=== PATIENT | female | born 1930 | race Caucasian/White ===

== ENCOUNTER 2017-06-17 06:43 | Emergency (ER) | payer MEDICARE, BC ==
[~2017-06-17] VITALS: Ht 149.9 cm; Wt 57.0 kg
[~2017-06-17 06:43] MED LIST: FOLI1 PO; HYDR2.5T PO
[2017-06-17 06:50] VITALS: BP 178/80; PULSE 78; RESP 18; TEMP 98.7; O2SAT 95
[2017-06-17] MEDS ORDERED: METO50TA PO (06:59)
[2017-06-17] MEDS ORDERED: OMEP40CA2 PO (06:59)
[2017-06-17] MEDS ORDERED: LOSA100T PO (06:59)
[2017-06-17] MEDS ORDERED: AMLO5TAB2 PO (06:59)
[2017-06-17] MEDS ORDERED: FOLI400T PO (06:59)
[2017-06-17] MEDS ORDERED: SODIUM CHLORIDE 0.9% FLUSH 10 ML FLUSH IV FLUSH PRN (07:45)
[2017-06-17] MEDS ORDERED: SODIUM CHLOR 0.9% 1000 ML INJ 1,000 ML IV SCH (07:45)
[2017-06-17] MEDS ORDERED: ONDANSETRON HCL 4 MG/2 ML VIAL IVP ONE (07:45)
--- NOTE | 2017-06-17 07:57 | PD ---
HPI Chief Complaint: Abdominal Pain Time Seen by Provider: 07:34 Travel History International Travel<30 days: No Contact w/Intl Traveler<30days: No Traveled to known affect area: No History of Present Illness HPI The patient was seen and examined in the presence of the nurse. She complains of abdominal pain and diarrhea. Duration is 8 hours. Severity is moderate. She has abdominal pain and bilateral lower quadrants. No fever or vomiting but has nausea. She reports multiple episodes of diarrhea through the night. Denies ill contacts. Denies history of diagnosed colon problems. She had a spell of abdominal pain a week ago that resolved after 2 days. No alleviating factors. No exacerbating factors. PFSH Past Medical History Diminished Hearing: Yes (VERY MUCH) GERD: Yes Hypertension: Yes Tetanus Vaccination: < 5 Years Influenza Vaccination: No Menopausal: Yes Past Surgical History Joint Replacement: Yes (BILAT HIPS) Social History Alcohol Use: Yes Tobacco Use: No Substance Use: No Allergies-Medications (Allergen,Severity, Reaction): Coded Allergies: Sulfa (Sulfonamide Antibiotics) (Unverified Allergy, Severe, 06/17/17) penicillin G (Unverified Allergy, Severe, 06/17/17) Reported Meds & Prescriptions Reported Meds & Active Scripts Active Zofran (Ondansetron HCl) 4 Mg Tab 4 Mg PO Q6HR PRN Flagyl (Metronidazole) 500 Mg Tab 500 Mg PO QID 7 Days Cipro (Ciprofloxacin HCl) 500 Mg Tab 500 Mg PO BID Tramadol (Tramadol HCl) 50 Mg Tab 50 Mg PO Q6H PRN Reported Omeprazole 40 Mg Cap 40 Mg PO DAILY Folic Acid 0.4 Mg Tab 400 Mcg PO DAILY Metoprolol Tartrate 50 Mg Tab 50 Mg PO DAILY Losartan (Losartan Potassium) 100 Mg Tab 100 Mg PO DAILY Amlodipine (Amlodipine Besylate) 5 Mg Tab 5 Mg PO DAILY Review of Systems General / Constitutional: No: Fever Eyes: No: Visual changes HENT: No: Headaches Cardiovascular: No: Chest Pain or Discomfort Respiratory: No: Shortness of Breath Gastrointestinal: Positive: Nausea, Diarrhea, Abdominal Pain Genitourinary: No: Dysuria Musculoskeletal: No: Pain Skin: No Rash Neurologic: No: Weakness Psychiatric: No: Depression Endocrine: No: Polydipsia Hematologic/Lymphatic: No: Easy Bruising Physical Exam Narrative GENERAL: Well-nourished, well-developed patient with abdominal pain and diarrhea SKIN: Focused skin assessment reveals no rash and nodules. Skin is Warm and dry. HEAD: Atraumatic. Normocephalic. EYES: Pupils equal and round. No scleral icterus. No injection or drainage. ENT: No nasal bleeding or discharge. Mucous membranes pink and dry . NECK: Trachea midline. No JVD. CARDIOVASCULAR: Regular rate and rhythm. No murmur appreciated. RESPIRATORY: No accessory muscle use. Clear to auscultation. Breath sounds equal bilaterally. GASTROINTESTINAL: Abdomen soft, bilateral lower quadrant tenderness without rebound or guarding, nondistended. Hepatic and splenic margins not palpable. MUSCULOSKELETAL: No obvious deformities. No clubbing. No cyanosis. No edema. NEUROLOGICAL: Awake and alert. No obvious cranial nerve deficits. Motor grossly within normal limits. Normal speech. PSYCHIATRIC: Appropriate mood and affect; insight and judgment normal. Data Data Last Documented VS Vital Signs Date Time Temp Pulse Resp B/P (MAP) Pulse Ox O2 Delivery O2 Flow Rate FiO2 06/17/17 09:00 81 17 150/74 (99) 97 Room Air 06/17/17 06:50 98.7 Orders Orders Complete Blood Count With Diff (06/17/17 07:45) Comprehensive Metabolic Panel (06/17/17 07:45) Ct Abd/Pel W Iv Contrast(Rout) (06/17/17 07:45) Iv Access Insert/Monitor (06/17/17 07:45) Ecg Monitoring (06/17/17 07:45) Oximetry (06/17/17 07:45) NPO (06/17/17 07:45) Ondansetron Inj (Zofran Inj) (06/17/17 07:45) Sodium Chlor 0.9% 1000 Ml Inj (Ns 1000 M (06/17/17 07:45) Sodium Chloride 0.9% Flush (Ns Flush) (06/17/17 07:45) Electrocardiogram (06/17/17 07:09) Iohexol 350 Inj (Omnipaque 350 Inj) (06/17/17 09:16) Labs Laboratory Tests Test 06/17/17 08:00 White Blood Count 10.3 TH/MM3 Red Blood Count 4.09 MIL/MM3 Hemoglobin 14.8 GM/DL Hematocrit 41.8 % Mean Corpuscular Volume 102.4 FL Mean Corpuscular Hemoglobin 36.1 PG Mean Corpuscular Hemoglobin Concent 35.3 % Red Cell Distribution Width 12.1 % Platelet Count 178 TH/MM3 Mean Platelet Volume 9.6 FL Neutrophils (%) (Auto) 83.0 % Lymphocytes (%) (Auto) 8.0 % Monocytes (%) (Auto) 7.3 % Eosinophils (%) (Auto) 1.2 % Basophils (%) (Auto) 0.5 % Neutrophils # (Auto) 8.5 TH/MM3 Lymphocytes # (Auto) 0.8 TH/MM3 Monocytes # (Auto) 0.7 TH/MM3 Eosinophils # (Auto) 0.1 TH/MM3 Basophils # (Auto) 0.0 TH/MM3 CBC Comment DIFF FINAL Differential Comment Blood Urea Nitrogen 10 MG/DL Creatinine 0.67 MG/DL Random Glucose 212 MG/DL Total Protein 7.6 GM/DL Albumin 3.8 GM/DL Calcium Level 9.4 MG/DL Alkaline Phosphatase 74 U/L Aspartate Amino Transf (AST/SGOT) 18 U/L Alanine Aminotransferase (ALT/SGPT) 18 U/L Total Bilirubin 0.4 MG/DL Sodium Level 136 MEQ/L Potassium Level 3.3 MEQ/L Chloride Level 102 MEQ/L Carbon Dioxide Level 24.9 MEQ/L Anion Gap 9 MEQ/L Estimat Glomerular Filtration Rate 83 ML/MIN [facility] Medical Decision Making Medical Screen Exam Complete: Yes Emergency Medical Condition: Yes Medical Record Reviewed: Yes Differential Diagnosis Colitis, dehydration, gastroenteritis Narrative Course I have reviewed the patient's electronic medical record. I have ordered an abdominal pain workup to include labs and CT scanning I gave her IV Zofran and 1 L normal saline IV She looks dehydrated clinically and is thirsty On recheck the patient is improved She is resting comfortably without significant pain CT scan shows mild colitis without obstruction or abscess or perforation Lab studies reasonably normal Patient feels well enough to go home I wrote her Flagyl and Cipro as well as some of her pain and nausea if needed Advised to contact her physician when she gets home to set up follow-up as well as discuss GI follow-up Diagnosis Primary Impression: Colitis, acute Additional Impression: Dehydration, mild Additional Instructions: Follow-up with primary care and GI Med/Other Pt SpecificInfo: Prescription(s) given Scripts Ondansetron (Zofran) 4 Mg Tab 4 MG PO Q6HR Y for NAUSEA OR VOMITING, #15 TAB 0 Refills Prov: Gaetano Cast MD 06/17/17 Metronidazole (Flagyl) 500 Mg Tab 500 MG PO QID for Infection for 7 Days, TAB 0 Refills Prov: Gaetano Cast MD 06/17/17 Ciprofloxacin (Cipro) 500 Mg Tab 500 MG PO BID for Infection, #14 TAB 0 Refills Prov: Gaetano Cast MD 06/17/17 Tramadol (Tramadol) 50 Mg Tab 50 MG PO Q6H Y for PAIN, #20 TAB 0 Refills Prov: Gaetano Cast MD 06/17/17 Disposition: 01 DISCHARGE HOME Condition: Stable Gaetano Cast MD Jun 17, 2017 07:57
[2017-06-17 07:58] VITALS: RESP 16; O2SAT 97
[2017-06-17 08:15] LABS: AUTOMATED NEUTROPHIL # 8.5 TH/MM3 (1.8-7.7); BASOPHIL % 0.5 % (0.0-2.0); EOSINOPHIL # 0.1 TH/MM3 (0-0.4); EOSINOPHIL % 1.2 % (0.0-4.0); HEMATOCRIT 41.8 % (35.0-46.0); HEMOGLOBIN 14.8 GM/DL (11.6-15.3); LYMPHOCYTE # 0.8 TH/MM3 (1.0-4.8); MEAN CELL VOLUME 102.4 FL (80.0-100.0); MEAN CORPUSCULAR HEMOGLOBIN 36.1 PG (27.0-34.0); MEAN CORPUSCULAR HGB CONC 35.3 % (32.0-36.0); MEAN PLATELET VOLUME 9.6 FL (7.0-11.0); MONO % 7.3 % (0.0-8.0); MONOCYTE # 0.7 TH/MM3 (0-0.9); PLATELET COUNT 178 TH/MM3 (150-450); RED BLOOD COUNT 4.09 MIL/MM3 (4.00-5.30); RED CELL DISTRIBUTION WIDTH 12.1 % (11.6-17.2); WHITE BLOOD COUNT 10.3 TH/MM3 (4.0-11.0)
[2017-06-17 08:28] LABS: ALT (GPT) 18 U/L (10-53)
[2017-06-17 08:31] LABS: ALKALINE PHOSPHATASE 74 U/L (45-117); TOTAL BILIRUBIN ADULT 0.4 MG/DL (0.2-1.0); TOTAL PROTEIN 7.6 GM/DL (6.4-8.2)
[2017-06-17 08:36] LABS: ALBUMIN 3.8 GM/DL (3.4-5.0); AST (GOT) 18 U/L (15-37); BICARBONATE 24.9 MEQ/L (21.0-32.0); BLOOD UREA NITROGEN 10 MG/DL (7-18); CALCIUM 9.4 MG/DL (8.5-10.1); CHLORIDE 102 MEQ/L (98-107); CREATININE 0.67 MG/DL (0.50-1.00); GLOMERULAR FILTRATION RATE 83 ML/MIN (>89); GLUCOSE,RANDOM 212 MG/DL (74-106); SODIUM (NA) 136 MEQ/L (136-145)
[2017-06-17 09:00] VITALS: BP 150/74; PULSE 81; RESP 17; O2SAT 97
[2017-06-17] MEDS ORDERED: IOHEXOL 350 MG/ML 10 ML VIAL (for RAD DIAG) IVCONTRAST ONE (09:16)
--- NOTE | 2017-06-17 09:30 | RADRPT ---
EXAM DATE/TIME: 06/17/2017 09:12 [place] COMPARISON: No previous studies available for comparison. INDICATIONS : Lower abdominal pain IV CONTRAST: 85 cc Omnipaque 350 (iohexol) IV ORAL CONTRAST: No oral contrast ingested. RADIATION DOSE: 8.82 CTDIvol (mGy) MEDICAL HISTORY : Hypertension. SURGICAL HISTORY : Bilateral hip replacements ENCOUNTER: Initial ACUITY: 1 day PAIN SCALE: 5/10 LOCATION: Bilateral lower quadrant TECHNIQUE: Volumetric scanning of the abdomen and pelvis was performed. Using automated exposure control and ad justment of the mA and/or kV according to patient size, radiation dose was kept as low as reasonably achievable to obtain optimal diagnostic quality images. DICOM format image data is available electro nically for review and comparison. FINDINGS: Lung bases are clear. Moderate hiatal hernia. No acute findings in the liver, spleen, adrenals, kidne ys or pancreas. There is a 2.9 cm infrarenal abdominal aortic aneurysm. There is colonic diverticulosis with a mild diverticulitis in the left lower quadrant. No abscess, ob struction, free fluid or free air. Previous bilateral hip replacement. Chronic appearing compression deformity at T12. CONCLUSION: 1. Mild diverticulitis distal left colon without abscess, obstruction, free fluid or free air. 2. Moderate hiatal hernia. 3. Mild fatty liver. 4. Bilateral hip replacement. 5. 2.9 cm infrarenal abdominal aortic aneurysm. Francesco Katz MD on June 17, 2017 at 9:24 Board Certified Radiologist. This report was verified electronically.
[2017-06-17] MEDS ORDERED: METR-1 PO (11:45)
[2017-06-17] MEDS ORDERED: ZOFR4TAB PO (11:45)
[2017-06-17] MEDS ORDERED: CIPR-9 PO (11:45)
[2017-06-17] MEDS ORDERED: TRAM50TA PO (11:45)
--- NOTE | 2017-06-18 18:12 | EKG ---
Date Performed: 06/17/2017 Time Performed: 07:09:19 PTAGE: 86 years EKG: Sinus rhythm WITH FIRST DEGREE AV BLOCK NONSPECIFIC T-WAVE ABNORMALITY ABNORMAL ECG NO PREVIOUS TRACING DOCTOR: Cayetano Chery Interpretating Date/Time 06/18/2017 18:11:29
== END 2017-06-17 13:04 | disposition home or self-care (01) ==
LOC: NEPC 06:43
DX: K52.9 Noninfective gastroenteritis and colitis, unspecified (principal); E86.0 Dehydration; K21.9 Gastro-esophageal reflux disease without esophagitis; I10 Essential (primary) hypertension
CPT/HCPCS: 74177; 80053; 85025; 93005; 96374; 99285; J2405; J7030; Q9967

== ENCOUNTER 2017-11-30 09:15 | Observation (INO) ==
--- NOTE | 2017-11-30 09:42 | ED ---
HPI General Chief complaint: Weakness Stated complaint: Cardiac complaint Time Seen by Provider: 11/30/17 09:34 Source: patient, EMS, RN notes reviewed and old records reviewed Mode of arrival: EMS Limitations: other (hard of hearing) History of Present Illness HPI Narrative: 87-year-old female states that she has been feeling generally weak over the past couple months. She has been keeping track of her heart rate and blood pressure as she feels like her heart rate has been low. She states when she went to her primary doctor farach he stopped her metoprolol yesterday and wanted to monitor her over the next couple of days. She states now her blood pressure is higher but her heart rate is still low and so she was sent here for further care. She denies any pain or other concurrent complaints. MD Complaint: generalized weakness Onset (ago): month(s) Duration: constant Location: generalized Associated symptoms: denies other symptoms Related Data Allergies Allergy/AdvReac Type Severity Reaction Status Date / Time penicillin G Allergy Severe Unverified 06/17/17 06:53 Sulfa (Sulfonamide Allergy Severe Unverified 06/17/17 06:53 Antibiotics) Review of Systems ROS: all other systems reviewed are negative [facility] Medical History Medical History Diverticulitis (Acute) HTN (hypertension) (Acute) Surgical History Surgical History History of ankle surgery (Acute) History of hip surgery (Acute) Social History Social History Substance History: No History of Abuse Second Hand Smoke Exposure: No Smoking Status: Never smoker How Often Do You Have a Drink Containing Alcohol: Monthly or less Recent Travel in [facility] within the Last 8 Weeks: No Recent Out of Country Travel within the Last 8 Weeks: No Exam Narrative Exam Narrative: GENERAL: 87-year-old female in no apparent distress SKIN: Focused skin assessment warm/dry. HEAD: Atraumatic. Normocephalic. EYES: Pupils equal and round. No scleral icterus. No injection or drainage. ENT: No nasal bleeding or discharge. Mucous membranes pink and moist. NECK: Trachea midline. CARDIOVASCULAR: Bradycardic rate and regular rhythm. No murmur appreciated. RESPIRATORY: No accessory muscle use. Clear to auscultation. Breath sounds equal bilaterally. MUSCULOSKELETAL: No obvious deformities. No clubbing. No cyanosis. NEUROLOGICAL: Awake and alert. Motor grossly within normal limits. Normal speech. PSYCHIATRIC: Appropriate mood and affect; insight and judgment normal. Course Reevaluation(s) Reevaluation #1: patient updated and agrees to admit Consultations Consultation #1: resident team agrees to admit Initial Documented Vital Signs Temperature 97.5 F L 11/30/17 09:21 Pulse Rate 38 L 11/30/17 09:21 Respiratory Rate 20 11/30/17 09:21 Blood Pressure 200/86 H 11/30/17 09:21 Pulse Oximetry 98 11/30/17 09:21 Last Documented Vital Signs Temperature 97.5 F L 11/30/17 09:21 Pulse Rate 38 L 11/30/17 09:21 Respiratory Rate 20 11/30/17 09:21 Blood Pressure 200/86 H 11/30/17 09:21 Pulse Oximetry 97 11/30/17 09:38 Medical Decision Making MDM Narrative Medical decision making narrative: Will check blood work, x-ray and reevaluate Medical Screen Exam Complete: Yes Emergency Medical Condition: Yes Differential Diagnosis Differential Diagnosis: Electrolyte abnormality, medication effect, cardiac Lab Data Result diagrams: 11/30/17 09:42 11/30/17 09:42 Lab Results 11/30/17 11/30/17 11/30/17 Range/Units 09:42 09:42 09:42 WBC 4.7 (4.0-11.0) th/mm3 RBC 4.35 (4.00-5.30) mil/mm3 Hgb 15.2 (11.6-15.3) gm/dL Hct 44.2 (35.0-46.0) % MCV 101.6 H (80.0-100.0) fL MCH 35.0 H (27.0-34.0) pg MCHC 34.4 (32.0-36.0) % RDW 12.9 (11.6-17.2) % Plt Count 162 (150-450) th/mm3 MPV 9.4 (7.0-11.0) fL Neut % (Auto) 66.3 (16.0-70.0) % Lymph % (Auto) 20.0 (9.0-44.0) % [place] % (Auto) 10.3 H (0.0-8.0) % Eos % (Auto) 2.5 (0.0-4.0) % Baso % (Auto) 0.9 (0.0-2.0) % Neut # (Auto) 3.1 (1.8-7.7) th/mm3 Lymph # (Auto) 0.9 L (1.0-4.8) th/mm3 [place] # (Auto) 0.5 (0.0-0.9) th/mm3 Eos # (Auto) 0.1 (0.0-0.4) th/mm3 Baso # (Auto) 0.0 (0.0-0.2) th/mm3 WBC Differential . Differential Comment Auto diff final PT 11.0 (9.8-11.6) sec INR 1.1 Ratio APTT 26.0 (24.3-30.1) sec Sodium 139 (136-145) meq/L Potassium 4.2 (3.5-5.1) meq/L Chloride 103 (98-107) meq/L Carbon Dioxide 27.4 (21.0-32.0) meq/L Anion Gap 9 (5-15) meq/L BUN 10 (7-18) mg/dL Creatinine 0.69 (0.50-1.00) mg/dL Estimated GFR 80 L (>89) mL/min Random Glucose 180 H (74-106) mg/dL Calcium 8.6 (8.5-10.1) mg/dL Magnesium 2.0 (1.5-2.5) mg/dL Total Bilirubin 0.5 (0.2-1.0) mg/dL AST 15 (15-37) U/L ALT 19 (10-53) U/L Alkaline Phosphatase 72 (45-117) U/L Total Creatine Kinase 35 (26-192) U/L Troponin I Less than 0.02 L (0.02-0.05) ng/mL Total Protein 7.7 (6.4-8.2) g/dL Albumin 3.6 (3.4-5.0) g/dL Imaging Data Radiologist's impression: Chest X-Ray 11/30/17 09:38 CONCLUSION: Negative examination. Discharge Plan Physicians Team ED Provider: Natalie Wadsworth Primary Care Provider: Dalton Yeh Status ED Status: Admitted Observation Patient
[2017-11-30 09:56] LABS: Baso % (Auto) 0.9 % (0.0-2.0); Eos # (Auto) 0.1 th/mm3 (0.0-0.4); Eos % (Auto) 2.5 % (0.0-4.0); Hematocrit 44.2 % (35.0-46.0); Hemoglobin 15.2 gm/dL (11.6-15.3); Lymph # (Auto) 0.9 th/mm3 (1.0-4.8); Mean Corpuscular HGB Conc 34.4 % (32.0-36.0); Mean Corpuscular Volume 101.6 fL (80.0-100.0); Mean Platelet Volume 9.4 fL (7.0-11.0); Mono # (Auto) 0.5 th/mm3 (0.0-0.9); Mono % (Auto) 10.3 % (0.0-8.0); Neut # (Auto) 3.1 th/mm3 (1.8-7.7); Neut % (Auto) 66.3 % (16.0-70.0); Platelet Count 162 th/mm3 (150-450); Red Blood Count 4.35 mil/mm3 (4.00-5.30); Red Cell Distribution Width 12.9 % (11.6-17.2); White Blood Count 4.7 th/mm3 (4.0-11.0)
[2017-11-30 10:09] LABS: INR 1.1 Ratio
--- NOTE | 2017-11-30 10:09 | XR ---
EXAM DATE: 11/30/2017 10:05 AM EDT AGE/SEX: 87 years / Female INDICATIONS: Chest pain. Patient states her blood pressure was high and she had a low pulse rate. CLINICAL DATA: This is the patient's initial encounter. Patient reports that signs and symptoms have been present for 1 day and indicates a pain score of 0/10. MEDICAL/SURGICAL HISTORY: Hypertension. . Hip replacement. COMPARISON: [facility] – [place], CHEST SINGLE AP, 07/24/2012. . FINDINGS: A single AP view of the chest demonstrates the lungs to be symmetrically aerated without evidence of mass, infiltrate or effusion. The cardiomediastinal contours are unremarkable. Osseous structures a re intact. CONCLUSION: Negative examination. Electronically signed by: Renan Perez MD 11/30/2017 10:08 AM EDT
[2017-11-30 10:14] LABS: Alanine Aminotransferase 19 U/L (10-53); Albumin 3.6 g/dL (3.4-5.0); Anion Gap 9 meq/L (5-15); Aspartate Aminotransferase 15 U/L (15-37); Blood Urea Nitrogen 10 mg/dL (7-18); Calcium 8.6 mg/dL (8.5-10.1); Carbon Dioxide 27.4 meq/L (21.0-32.0); Chloride 103 meq/L (98-107); Glomerular Filtration Rate 80 mL/min (>89); Glucose,Random 180 mg/dL (74-106); Potassium 4.2 meq/L (3.5-5.1); Sodium 139 meq/L (136-145)
[2017-11-30 10:19] LABS: Alkaline Phosphatase 72 U/L (45-117); Total Protein 7.7 g/dL (6.4-8.2)
[2017-11-30 10:22] LABS: Creatine Kinase 35 U/L (26-192)
[2017-11-30] MEDS ORDERED: Acetaminophen 325 MG Tablet PO PRN (11:56)
--- NOTE | 2017-11-30 12:06 | P.HPFP ---
History of Present Illness Primary Care Physician: Dalton Yeh MD <[facility] 12/01/17 15:11> Dalton Yeh MD <David Kothari 11/30/17 12:06> Chief Complaint: Weakness <David Kothari 11/30/17 14:08> History of Present Illness: 87-year-old female with a history of hypertension, GERD, recurrent GI bleeds, diverticulitis presenting to the ED with progressive weakness. Patient states that 2 weeks ago she had a colonoscopy due to recurrent melena and she states that during the procedure she had "low pulse". She states that since that time she has been progressively more weak, foggy and drowsy. She checks her vitals at home and has noticed fluctuating blood pressure accompanied by heart rates in the 40s and 30s. She states that she saw her primary doctor 2 days prior to presentation and he discontinued her metoprolol. Despite this she continued to be progressively more weak and drowsy and this prompted her to come to the emergency room. He denies any chest pain, shortness of breath, headaches or blurry vision, abdominal pain, melena or bloody bowel movements currently. Of note, patient notes that she has a history of hemochromatosis which " resolved itself several years ago" Denies any family history of heart disease <David Kothari 11/30/17 14:55> - Diagnosis (1) Bradycardia (2) Weakness (3) Hypertension (4) Recurrent gastrointestinal hemorrhage (5) GERD (gastroesophageal reflux disease) (6) Anxiety (7) Nutrition, metabolism, and development symptoms <Rita Hair Stacey 12/01/17 15:11> (1) Bradycardia (2) Weakness (3) Hypertension (4) Recurrent gastrointestinal hemorrhage (5) GERD (gastroesophageal reflux disease) (6) Anxiety (7) Nutrition, metabolism, and development symptoms <David Kothari 11/30/17 14:39> Review of Systems Constitutional: Denies chills, Denies fever(s) <David Kothari 11/30/17 14 :55> Eyes: Denies blurry vision, Denies double vision <David Kothari 11/30/17 14:55> Ears, Nose, Mouth, and Throat: Denies dizziness, Denies post nasal drip, Denies sore throat <David Kothari 11/30/17 14:55> Cardiovascular: Denies chest pain, Denies chest pain at rest, Denies chest pain with activity <David Kothari 11/30/17 14:55> Respiratory: Reports cough, Denies wheezing <David Kothari 11/30/17 14:55 > Gastrointestinal: Denies abdominal pain, Denies black, tarry stools, Denies bloating <David Kothari 11/30/17 14:55> Genitourinary: Denies blood in urine, Denies urinary urgency <David Kothari 11/30/17 14:55> Skin/Breast: Denies boil, Denies sores <David Kothari 11/30/17 14:55> PMF - History History Provided By: Patient, [employer] Painter / EMT <David Kothari 11/30/17 12: 06> - Medical History Medical History: Medical History (Last Reviewed 11/30/17 @ 14:44 by David Kothari MD, R2) Diverticulitis GERD (gastroesophageal reflux disease) HTN (hypertension) <Rita Hair 12/01/17 15:11> Medical History (Last Reviewed 11/30/17 @ 14:44 by David Kothari MD, R2) Diverticulitis GERD (gastroesophageal reflux disease) HTN (hypertension) <David Kothari 11/30/17 14:55> - Surgical History Surgical History: Surgical History (Last Reviewed 11/30/17 @ 14:44 by David Kothari MD, R2) History of ankle surgery History of hip surgery <Rita Hair 12/01/17 15:11> Surgical History (Last Reviewed 11/30/17 @ 14:44 by David Kothari MD, R2) History of ankle surgery History of hip surgery <David Kothari 11/30/17 14:55> - Tobacco History Second Hand Smoke Exposure: No <David Kothari 11/30/17 12:06> Tobacco Use In Past 30 Days: No <David Kothari 11/30/17 12:06> Smoking Status: Never smoker <David Kothari 11/30/17 12:06> - Alcohol History How Often Do You Have a Drink Containing Alcohol: Monthly or less <David Kothari 11/30/17 12:06> - Substance Use History Substance History: No History of Abuse <David Kothari Elda - 11/30/17 12:06> - Travel History Recent Travel in the [place] Within the Last 8 Weeks: No <David Kothari Elda - 11/30 12:06> Recent Travel Out of the Country Within the Last 8 Weeks: No <David Kothari Elda - 11/30/17 12:06> - Immunization History Tetanus Immunization: Never Vaccinated <David Kothari Elda - 11/30/17 12:06> Hx Influenza Vaccine This Season: No <David Kothari Elda - 11/30/17 12:06> Medications and Allergies Allergies Allergy/AdvReac Type Severity Reaction Status Date / Time penicillin G Allergy Severe Rash Verified 11/30/17 13:39 Sulfa (Sulfonamide Allergy Severe Rash Verified 11/30/17 13:39 Antibiotics) <Rita Hair - 12/01/17 15:11> Home Medications Medication Instructions Recorded Confirmed Type alprazolam 0.25 mg PO DAILY 11/30/17 11/30/17 History amlodipine 5 mg PO DAILY 11/30/17 11/30/17 History folic acid 1 mg PO DAILY 11/30/17 11/30/17 History losartan 100 mg PO DAILY 11/30/17 11/30/17 History metoprolol tartrate 50 mg PO DAILY 11/30/17 11/30/17 History omeprazole 40 mg PO DAILY 11/30/17 11/30/17 History <Rita Hair - 12/01/17 15:11> Active Medications: Active Medications Acetaminophen (Tylenol) 650 mg PO Q4H PRN PRN Reason: Temp > 100.4 Al Hydroxide/Mg Hydroxide (Milk Of Magnesia Liq) 30 ml PO Q12H PRN PRN Reason: Mild Constipation Alprazolam (Xanax) 0.25 mg PO DAILY [facility] Last Admin: 12/01/17 10:04 Dose: Not Given Amlodipine Besylate (Norvasc) 5 mg PO DAILY [facility] Last Admin: 12/01/17 08:00 Dose: Not Given Chlorhexidine Gluconate (Chlorhexidine 2% Cloth) 3 pack TOPICAL JEWELSMITH [facility] Stop: 12/03/17 13:27 Chlorhexidine Gluconate (Chlorhexidine 2% Cloth) 3 pack TOPICAL JEWELSMITH [facility] Stop: 12/04/17 05:36 Enalaprilat (Vasotec Inj) 1.25 mg IV.PUSH Q6H PRN PRN Reason: SEE LABEL COMMENTS Folic Acid (Folic Acid) 1 mg PO DAILY [facility] Last Admin: 12/01/17 08:00 Dose: Not Given Vancomycin HCl 1,000 mg/ (Sodium Chloride) 250 mls @ 250 mls/hr IV.SIG JEWELSMITH [facility] Stop: 12/03/17 14:59 Last Infusion: 12/01/17 09:30 Dose: Infused Lactated Ringer's (Lr 1000 Ml Inj) 1,000 mls @ 30 mls/hr IV.SIG .Q24H [facility] Stop: 12/04/17 05:36 Last Admin: 12/01/17 07:22 Dose: Not Given Sodium Chloride (Ns Inj) 500 mls @ 30 mls/hr IV.SIG .Q10H [facility] Stop: 12/04/17 05:36 Last Infusion: 12/01/17 13:19 Dose: Infused Losartan Potassium (Cozaar) 100 mg PO DAILY [facility] Last Admin: 12/01/17 08:00 Dose: Not Given Metoprolol Tartrate (Lopressor) 25 mg PO [facility]EW[facility]SMITH [facility] Stop: 12/04/17 05:36 Miscellaneous Information ([facility] Nursing Information) 1 each OTHER UNSCH PRN PRN Reason: SEE LABEL COMMENTS Stop: 12/02/17 09:28 Mupirocin (Bactroban 2% Nasal Oint) 1 applicatio EACH NARE JEWELSMITH [facility] Stop: 12/03/17 13:27 Ondansetron HCl (Zofran Inj) 4 mg IV.PUSH Q6H PRN PRN Reason: NAUSEA OR VOMITING Pantoprazole Sodium (Protonix) 40 mg PO DAILY [facility] Last Admin: 12/01/17 08:00 Dose: Not Given Povidone Iodine (Betadine 5% Antisepsis Kit) 1 applicatio EACH NARE J[facility]SMITH [facility] Stop: 12/03/17 13:27 Povidone Iodine (Betadine 5% Antisepsis Kit) 1 applicatio EACH NARE J[facility]SMITH [facility] Stop: 12/04/17 05:36 Senna/Docusate Sodium (Josiane-Colace) 1 tab PO BID [facility] Last Admin: 12/01/17 08:00 Dose: Not Given Sodium Chloride (Ns Flush) 2 ml IV.FLUSH UNSCH PRN PRN Reason: FLUSH AFTER USING IV ACCESS <Rita Hair M - 12/01/17 15:11> Active Medications Acetaminophen (Tylenol) 650 mg PO Q4H PRN PRN Reason: Temp > 100.4 Al Hydroxide/Mg Hydroxide (Milk Of Magnesia Liq) 30 ml PO Q12H PRN PRN Reason: Mild Constipation Ondansetron HCl (Zofran Inj) 4 mg IV.PUSH Q6H PRN PRN Reason: NAUSEA OR VOMITING Senna/Docusate Sodium (Josiane-Colace) 1 tab PO BID ANIKA Sodium Chloride (Ns Flush) 2 ml IV.FLUSH UNSCH PRN PRN Reason: FLUSH AFTER USING IV ACCESS <David Kothari - 11/30/17 12:06> Exam Vital signs: Vital Signs 11/30/17 16:00 11/30/17 20:00 12/01/17 00:00 Temperature 97.5 F L 98 F 97.9 F Pulse Rate 42 L 42 L 38 L Respiratory Rate 20 18 18 Blood Pressure 143/66 H 159/70 H 147/68 H Pulse Oximetry 93 L 94 L 94 L 12/01/17 04:00 12/01/17 09:28 12/01/17 09:30 Temperature 97.4 F L 97.7 F Pulse Rate 44 L 89 89 Respiratory Rate 18 19 19 Blood Pressure 164/60 H 127/71 138/79 Pulse Oximetry 95 97 97 12/01/17 09:45 12/01/17 10:00 12/01/17 10:15 Temperature 97.7 F Pulse Rate 83 79 79 Respiratory Rate 20 20 17 Blood Pressure 135/75 143/70 H 142/72 H Pulse Oximetry 98 98 96 12/01/17 11:00 12/01/17 12:00 12/01/17 12:15 Temperature 97.4 F L Pulse Rate 85 98 H 54 L Respiratory Rate 16 Blood Pressure 138/78 136/75 Pulse Oximetry 98 98 12/01/17 13:00 12/01/17 14:00 12/01/17 14:19 Temperature Pulse Rate 97 H 95 H 101 H Respiratory Rate 16 Blood Pressure 110/80 Pulse Oximetry 96 12/01/17 14:25 12/01/17 14:44 Temperature Pulse Rate 92 H Respiratory Rate Blood Pressure Pulse Oximetry 92 L Intake & Output 11/30/17 12/01/17 12/01/17 18:59 06:59 18:59 Intake Total 240 / 240 1250 / 1250 Balance 240 / 240 1250 / 1250 Weight 58.513 kg 58.513 kg Intake: IV 1250 / 1250 NS Inj 1,000 ML @ 80 mls/hr IV. 500 / 500 CONT .[id number] ANIKA Rx#:[id number] NS Inj 500 ML @ 30 mls/hr IV. 500 / 500 SIG .Q10H ANIKA Rx#:[id number] Vancomycin Inj 1,000 MG In NS 250 / 250 Inj 250 ML @ 250 mls/hr IV.SIG JEWELSMITH ANIKA Rx#:[id number] Oral 240 / 240 Other: # Voids 2 Date of Last Bowel Movement 12/01/17 # Bowel Movements 1 1 <Rita Hair - 12/01/17 15:11> Vital Signs 11/30/17 09:21 11/30/17 09:38 11/30/17 11:58 Temperature 97.5 F L Pulse Rate 38 L Respiratory Rate 20 Blood Pressure 200/86 H Pulse Oximetry 98 97 96 Intake & Output 11/29/17 11/30/17 11/30/17 18:59 06:59 18:59 Weight 58.513 kg <David Kothari - 11/30/17 12:06> Narrative: GENERAL: Elderly well-nourished female lying in bed in no acute distress. Answering questions appropriately. SKIN: Warm and dry. HEAD: Atraumatic. Normocephalic. EYES: Pupils equal and round. No scleral icterus. No injection or drainage. Conjunctivae are not pale ENT: No nasal bleeding or discharge. Mucous membranes pink and moist. NECK: Trachea midline. No JVD. CARDIOVASCULAR: Heart rate in the 40s, regular rhythm. Capillary refill appropriate. RESPIRATORY: No accessory muscle use. Clear to auscultation. Breath sounds equal bilaterally. GASTROINTESTINAL: Abdomen soft, non-tender, nondistended. Hepatic and splenic margins not palpable. MUSCULOSKELETAL: Extremities without clubbing, cyanosis, or edema. No obvious deformities. NEUROLOGICAL: Awake and alert. No obvious cranial nerve deficits. Motor grossly within normal limits. Five out of 5 muscle strength in the arms and legs. Normal speech. PSYCHIATRIC: Appropriate mood and affect; insight and judgment normal. <David Kothari - 11/30/17 14:55> Results - Labs Result diagrams: 12/01/17 02:50 12/01/17 02:50 <Rita Hair - 12/01/17 15:11> Abnormal lab results 11/30/17 11/30/17 11/30/17 Range/Units 13:45 15:10 21:19 MCV (80.0-100.0) fL MCH (27.0-34.0) pg Cal[place]oun % (Auto) (0.0-8.0) % Random Glucose (74-106) mg/dL Troponin I Less than 0.02 L Less than 0.02 L (0.02-0.05) ng/mL Ur Leukocyte Esterase Small H (Negative) 12/01/17 12/01/17 Range/Units 02:50 02:50 MCV 100.4 H (80.0-100.0) fL MCH 35.6 H (27.0-34.0) pg Calhoun % (Auto) 11.6 H (0.0-8.0) % Random Glucose 128 H (74-106) mg/dL Troponin I (0.02-0.05) ng/mL Ur Leukocyte Esterase (Negative) Short CBC 12/01/17 Range/Units 02:50 WBC 5.6 (4.0-11.0) th/mm3 Hgb 14.8 (11.6-15.3) gm/dL Hct 41.7 (35.0-46.0) % Plt Count 166 (150-450) th/mm3 BMP 12/01/17 02:50 Sodium 140 Potassium 3.9 Chloride 105 Carbon Dioxide 24.8 BUN 10 Creatinine 0.62 Calcium 8.6 Cardiac Enzymes 11/30/17 11/30/17 Range/Units 15:10 21:19 Troponin I Less than 0.02 L Less than 0.02 L (0.02-0.05) ng/mL Urine 11/30/17 Range/Units 13:45 Urine Color Straw (Yellw/Straw) Urine Clarity Clear (Clear) Urine pH 7.0 (5.0-8.5) Ur Specific [place] 1.005 (1.002-1.035) Urine Protein Negative (Neg-Trace) mg/dL Urine Glucose (UA) Negative (Negative) mg/dL <Rita Hair - 12/01/17 15:11> Abnormal lab results 11/30/17 11/30/17 Range/Units 09:42 09:42 MCV 101.6 H (80.0-100.0) fL MCH 35.0 H (27.0-34.0) pg Calhoun % (Auto) 10.3 H (0.0-8.0) % Lymph # (Auto) 0.9 L (1.0-4.8) th/mm3 Estimated GFR 80 L (>89) mL/min Random Glucose 180 H (74-106) mg/dL Troponin I Less than 0.02 L (0.02-0.05) ng/mL Short CBC 11/30/17 Range/Units 09:42 WBC 4.7 (4.0-11.0) th/mm3 Hgb 15.2 (11.6-15.3) gm/dL Hct 44.2 (35.0-46.0) % Plt Count 162 (150-450) th/mm3 BMP 11/30/17 09:42 Sodium 139 Potassium 4.2 Chloride 103 Carbon Dioxide 27.4 BUN 10 Creatinine 0.69 Calcium 8.6 Cardiac Enzymes 11/30/17 Range/Units 09:42 Total Creatine Kinase 35 (26-192) U/L Troponin I Less than 0.02 L (0.02-0.05) ng/mL Liver Function 11/30/17 Range/Units 09:42 Total Bilirubin 0.5 (0.2-1.0) mg/dL AST 15 (15-37) U/L ALT 19 (10-53) U/L Alkaline Phosphatase 72 (45-117) U/L Albumin 3.6 (3.4-5.0) g/dL <David Kothari - 11/30/17 12:06> - Imaging Impressions Chest X-Ray 12/01/17 00:00 CONCLUSION: Cardiomegaly. No acute pulmonary disease. <Rita Hair - 12/01/17 15:11> Impressions Chest X-Ray 11/30/17 09:38 CONCLUSION: Negative examination. <David Kothari - 11/30/17 12:06> Caprini VTE Risk Assessment Caprini VTE Risk Assessment: Moderate/High Risk (score >= 2) <David Kothari - 11/30/17 14:55> Caprini Risk Assessment Model: Point Value = 1 Point Value = 2 Point Value = 3 Point Value = 5 Age 41-60 Minor surgery BMI > 25 kg/m2 Swollen legs Varicose veins or History of unexplained or recurrent spontaneous Oral contraceptives or hormone replacement Sepsis (< 1 month) Serious lung disease, including pneumonia (< 1 month) Abnormal pulmonary function Acute myocardial infarction Congestive heart failure (< 1 month) History of inflammatory bowel disease Medical patient at bed rest Age 61-74 Arthroscopic surgery Major open surgery (> 45 min) Laparoscopic surgery (> 45 min) Malignancy Confined to bed (> 72 hours) Immobilizing plaster cast Central venous access Age >= 75 History of VTE Family history of VTE Factor V Leiden Prothrombin [id number] Lupus anticoagulant Anticardiolipin antibodies Elevated serum homocysteine Heparin-induced thrombocytopenia Other congenital or acquired thrombophilia Stroke (< 1 month) Elective arthroplasty Hip, pelvis, or leg fracture Acute spinal cord injury (< 1 month) <Rita Hair - 12/01/17 15:11> Point Value = 1 Point Value = 2 Point Value = 3 Point Value = 5 Age 41-60 Minor surgery BMI > 25 kg/m2 Swollen legs Varicose veins or History of unexplained or recurrent spontaneous Oral contraceptives or hormone replacement Sepsis (< 1 month) Serious lung disease, including pneumonia (< 1 month) Abnormal pulmonary function Acute myocardial infarction Congestive heart failure (< 1 month) History of inflammatory bowel disease Medical patient at bed rest Age 61-74 Arthroscopic surgery Major open surgery (> 45 min) Laparoscopic surgery (> 45 min) Malignancy Confined to bed (> 72 hours) Immobilizing plaster cast Central venous access Age >= 75 History of VTE Family history of VTE Factor V Leiden Prothrombin [id number] Lupus anticoagulant Anticardiolipin antibodies Elevated serum homocysteine Heparin-induced thrombocytopenia Other congenital or acquired thrombophilia Stroke (< 1 month) Elective arthroplasty Hip, pelvis, or leg fracture Acute spinal cord injury (< 1 month) <David Kothari - 11/30/17 12:06> Prophylaxis Regimen: Total Risk Factor Score Risk Level Prophylaxis Regimen 0-1 Low Early ambulation 2 Moderate Order ONE of the following: *Sequential Compression Device (SCD) *Heparin 5000 units SQ BID 3-4 Higher Order ONE of the following medications: *Heparin 5000 units SQ TID *Enoxaparin/Lovenox 40 mg SQ daily (WT < 150 kg, CrCl > 30 mL/min) *Enoxaparin/Lovenox 30 mg SQ daily (WT < 150 kg, CrCl > 10-29 mL/min) *Enoxaparin/Lovenox 30 mg SQ BID (WT < 150 kg, CrCl > 30 mL/min) AND/OR *Sequential Compression Device (SCD) 5 or more Highest Order ONE of the following medications: *Heparin 5000 units SQ TID (Preferred with Epidurals) *Enoxaparin/Lovenox 40 mg SQ daily (WT < 150 kg, CrCl > 30 mL/min) *Enoxaparin/Lovenox 30 mg SQ daily (WT < 150 kg, CrCl > 10-29 mL/min) *Enoxaparin/Lovenox 30 mg SQ BID (WT < 150 kg, CrCl > 30 mL/min) AND *Sequential Compression Device (SCD) <Rita Hair - 12/01/17 15:11> Total Risk Factor Score Risk Level Prophylaxis Regimen 0-1 Low Early ambulation 2 Moderate Order ONE of the following: *Sequential Compression Device (SCD) *Heparin 5000 units SQ BID 3-4 Higher Order ONE of the following medications: *Heparin 5000 units SQ TID *Enoxaparin/Lovenox 40 mg SQ daily (WT < 150 kg, CrCl > 30 mL/min) *Enoxaparin/Lovenox 30 mg SQ daily (WT < 150 kg, CrCl > 10-29 mL/min) *Enoxaparin/Lovenox 30 mg SQ BID (WT < 150 kg, CrCl > 30 mL/min) AND/OR *Sequential Compression Device (SCD) 5 or more Highest Order ONE of the following medications: *Heparin 5000 units SQ TID (Preferred with Epidurals) *Enoxaparin/Lovenox 40 mg SQ daily (WT < 150 kg, CrCl > 30 mL/min) *Enoxaparin/Lovenox 30 mg SQ daily (WT < 150 kg, CrCl > 10-29 mL/min) *Enoxaparin/Lovenox 30 mg SQ BID (WT < 150 kg, CrCl > 30 mL/min) AND *Sequential Compression Device (SCD) <David Kothari - 11/30/17 12:06> Assessment and Plan - Assessment (1) Bradycardia Code(s): R00.1 - Bradycardia, unspecified Status: Acute (2) Weakness Code(s): R53.1 - Weakness Status: Acute (3) Hypertension Code(s): I10 - Essential (primary) hypertension Status: Acute (4) Recurrent gastrointestinal hemorrhage Code(s): K92.2 - Gastrointestinal hemorrhage, unspecified Status: Acute (5) GERD (gastroesophageal reflux disease) Code(s): K21.9 - Gastro-esophageal reflux disease without esophagitis Status: Acute (6) Anxiety Code(s): F41.9 - Anxiety disorder, unspecified Status: Acute (7) Nutrition, metabolism, and development symptoms Code(s): R63.8 - Other symptoms and signs concerning food and fluid intake Status: Acute <Rita Hair - 12/01/17 15:11> (1) Bradycardia Code(s): R00.1 - Bradycardia, unspecified Status: Acute Plan: Reported history of heart rate in the 30s and 40s over the last 2 weeks EKG on admission showed bradycardia with 2-1 AV block Troponin negative on admission Patient been on metoprolol tartrate 50 mg p.o. daily, last taken 2 days prior to presentation Placed on telemetry Consulting cardiology Will trend EKGs, troponins Holding home metoprolol (2) Weakness Code(s): R53.1 - Weakness Status: Acute Plan: 2 week history of progressive weakness Differential diagnoses including symptomatic bradycardia, anemia secondary to GI bleed, electrolyte abnormalities H&H is stable and within normal limits, no electrolyte abnormalities noted Suspect her symptoms be secondary to bradycardia See workup as above (3) Hypertension Code(s): I10 - Essential (primary) hypertension Status: Acute Plan: Known history of hypertension previously treated with amlodipine, metoprolol and losartan Holding metoprolol, continuing amlodipine and losartan Low pressure 200/88 on admission, continues to be elevated in the 170s over 80s Adding IV Vasotec as needed for systolic blood pressure over 180, diastolic over 100 (4) Recurrent gastrointestinal hemorrhage Code(s): K92.2 - Gastrointestinal hemorrhage, unspecified Status: Acute Plan: Patient reporting history of recurrent melanoma over the years Reporting a colonoscopy 2 weeks prior to presentation due to this Denying any current symptoms of melena or bloody bowel movements H&H stable Will hold pharmacologic DVT prophylaxis due to this (5) GERD (gastroesophageal reflux disease) Code(s): K21.9 - Gastro-esophageal reflux disease without esophagitis Status: Acute Plan: Known history of GERD Continue home omeprazole (6) Anxiety Code(s): F41.9 - Anxiety disorder, unspecified Status: Acute Plan: Known history of anxiety Continue home alprazolam (7) Nutrition, metabolism, and development symptoms Code(s): R63.8 - Other symptoms and signs concerning food and fluid intake Status: Acute Plan: Regular diet. N.p.o. at midnight Normal saline IV fluids at 80 mL/h SCDs for DVT prophylaxis <David Kothari - 11/30/17 14:39> - Assessment and Plan 87-year-old female with history of hypertension, GERD, recurrent GI bleeds, diverticulitis and anxiety presented to the ED with weakness. Found to be bradycardic with a 2-1 AV block with a heart rate in the 30s-40s. Cardiology consulted for possible pacemaker placement. Seen and discussed with Dr. Hair <David Kothari - 11/30/17 14:55> - Attending Attestation The exam, history, and the medical decision-making described in the above note were completed with the assistance of the resident physician. I reviewed and agree with the findings presented. I attest that I had a [id number] encounter with the patient on the same day, and personally performed and documented my assessment and findings in the medical record. I saw her on admission to the hospital and admitted her with the resident team. <Rita Hair - 12/01/17 15:11>
[2017-11-30] MEDS ORDERED: Mupirocin 2% Nasal Oint Topical Syringe EACH NARE SCH (13:30)
[2017-11-30] MEDS ORDERED: Chlorhexidine Gluconate 2% 1 Pack (2 Cloths) TOPICAL SCH (13:30)
--- NOTE | 2017-11-30 14:20 | MB ---
cc: Nabil Cleary MD DATE: 11/30/2017 REASON FOR CONSULTATION: Evaluation of slow heart rate. HISTORY OF PRESENT ILLNESS: Nan Olivia is an 87-year-old female who is a patient of Dr. Crenshaw. She has a history of hypertension and has been on metoprolol for this. She has been having erratic blood pressures and a slow heart rate. Dr. Yeh instructed her to discontinue metoprolol. She thinks she took her last dose on Tuesday, which would be 2 days ago. She has been feeling weak for the last couple of months. She was told when she had an endoscopy 2-3 weeks ago that her heart rate was slow. She is in 2:1 AV block and I am suspicious whether anybody has noticed that is a 2:1 block instead of just a sinus bradycardia. She has been in 2:1 block since she has been in here, with pulse rates into the 30s. She is very fatigued and tired. She has not actually passed out, but has not felt right for quite some time. She is right-handed. She has not had any chest pain or shortness of breath, but is extremely tired. PAST MEDICAL HISTORY: Includes hypertension. She has had bilateral hip replacements, left ankle surgery. She has had diverticular disease, hemochromatosis and porphyria. She is followed by Dr. Macdonald and has not required any phlebotomy for the past 2 years. SOCIAL HISTORY: She says the man that she lives with has dementia. She is a nonsmoker, nondrinker. She has 2 living children, one local and one out of state. The one living local is on her way to the hospital, apparently. ALLERGIES: INCLUDE PENICILLIN AND SULFA. REVIEW OF SYSTEMS: Otherwise negative. PHYSICAL EXAMINATION: GENERAL: Reveals a well-developed, well-nourished white female. She is a little hard of hearing. She responds little slow to questions, but otherwise appears appropriate. VITAL SIGNS: Charted. She is hypertensive and bradycardic. HEENT: Atraumatic, normocephalic. NECK: Negative for bruits. CHEST: Clear to auscultation. CARDIOVASCULAR: Shows normal S1, S2, bradycardic, 1/6 systolic murmur. No S3. ABDOMEN: Soft, nontender. No masses. EXTREMITIES: No clubbing, cyanosis, or edema. DIAGNOSTIC DATA: EKG shows sinus rhythm with 2:1 AV block. LABORATORY DATA: Show a hematocrit of 44.2, creatinine of 0.69. Troponin less than 0.2. Her chest x-ray is unremarkable. IMPRESSION: Symptomatic 2:1 heart block. PLAN: Appropriate consent has been obtained for a dual-chamber pacemaker, which I plan to put in tomorrow. The patient is aware of the risk of stroke, heart attack, , bleeding, infection, and is agreeable to proceed. Nabil Cleary MD VEW/kb , 01:25 PM , 01:33 PM
[2017-11-30] MEDS ORDERED: Vancomycin Inj 1,000 MG in Sodium Chlor 0.9% Inj 250 ML IV.SIG SCH (15:00)
[2017-11-30] MEDS: Sod Chloride 0.9% Inj 1,000 ML IV.CONT SCH (15:02)
[2017-11-30 15:56] LABS: Bilirubin,Urine Negative (Negative); Clarity,Urine Clear (Clear); Color,Urine Straw (Yellw/Straw); Glucose,Urine (UA) Negative (Negative); Leukocyte Esterase,Urine Small (Negative); Nitrite,Urine Negative (Negative); Specific Gravity,Urine 1.005 (1.002-1.035); Squamous Epithelial Cell,Urine <1 /hpf (0-5)
--- NOTE | 2017-11-30 21:09 | ECG ---
Date Performed: 11/30/2017 Time Performed: 09:25:04 PTAGE: 87 years EKG: SINUS BRADYCARDIA WITH 2ND DEGREE AV BLOCK, MOBITZ TYPE II ABNORMAL ECG PREVIOUS TRACING : 06/17/2017 07.09 Compared to previous tracing, Type II second degree AV blo ck is new DOCTOR: Eyad Torrez Interpretating Date/Time 11/30/2017 21:08:46
[2017-12-01] MEDS: Senna/Docusate Sodium 8.6/50 MG Tablet PO SCH ×3 (00:13→21:08)
[2017-12-01 05:23] LABS: Baso # (Auto) 0.1 th/mm3 (0.0-0.2); Baso % (Auto) 0.9 % (0.0-2.0); Eos # (Auto) 0.2 th/mm3 (0.0-0.4); Eos % (Auto) 3.8 % (0.0-4.0); Hematocrit 41.7 % (35.0-46.0); Hemoglobin 14.8 gm/dL (11.6-15.3); Lymph # (Auto) 1.4 th/mm3 (1.0-4.8); Lymph % (Auto) 25.9 % (9.0-44.0); Mean Corpuscular HGB Conc 35.5 % (32.0-36.0); Mean Corpuscular Hemoglobin 35.6 pg (27.0-34.0); Mean Corpuscular Volume 100.4 fL (80.0-100.0); Mean Platelet Volume 9.9 fL (7.0-11.0); Mono # (Auto) 0.6 th/mm3 (0.0-0.9); Mono % (Auto) 11.6 % (0.0-8.0); Neut # (Auto) 3.2 th/mm3 (1.8-7.7); Neut % (Auto) 57.8 % (16.0-70.0); Platelet Count 166 th/mm3 (150-450); Red Blood Count 4.15 mil/mm3 (4.00-5.30); Red Cell Distribution Width 12.7 % (11.6-17.2); White Blood Count 5.6 th/mm3 (4.0-11.0)
[2017-12-01] MEDS ORDERED: Chlorhexidine Gluconate 2% 1 Pack (2 Cloths) TOPICAL SCH (05:45)
[2017-12-01] MEDS ORDERED: Metoprolol Tartrate 25 MG Tablet PO SCH (05:45)
[2017-12-01 05:51] LABS: Anion Gap 10 meq/L (5-15); Blood Urea Nitrogen 10 mg/dL (7-18); Calcium 8.6 mg/dL (8.5-10.1); Carbon Dioxide 24.8 meq/L (21.0-32.0); Chloride 105 meq/L (98-107); Glomerular Filtration Rate Greater Than 89 mL/min (>89); Glucose,Random 128 mg/dL (74-106); Potassium 3.9 meq/L (3.5-5.1); Sodium 140 meq/L (136-145)
[2017-12-01] MEDS ORDERED: Sodium Chlor 0.9% Inj 500 ML IV.SIG SCH (06:00)
[2017-12-01] MEDS: Sod Chloride 0.9% Inj 1,000 ML IV.CONT SCH (06:38)
[2017-12-01] MEDS ORDERED: fentaNYL Citrate Inj 100 MCG/2 ML Ampul ONE (07:16)
[2017-12-01] MEDS ORDERED: Sodium Chlor 0.9% Inj 250 ML ONE (07:19)
[2017-12-01] MEDS: Folic Acid 1 MG Tablet PO SCH (08:00)
[2017-12-01] MEDS: amLODIPine 5 MG Tablet PO SCH (08:00)
[2017-12-01] MEDS ORDERED: Famotidine PF Inj 20 MG/2 ML Vial ONE (08:05)
[2017-12-01] MEDS ORDERED: Hydrocortisone Sod Succinate 100 MG Vial ONE (08:05)
--- NOTE | 2017-12-01 09:14 | CATHPROC ---
YCharts HIS Report Study Information Study Number Admission Scheduled Start Study Start [id number] 11/30/2017 12/01/2017 Dec 01 2017 6:59AM Referring Institution Admit Source Facility Department 1 Other [facility] Fire Captain Marine Physician and Clinical Staff Initial Nabil Alonzo Firmware Test Engineer Kala Valle RCIS Other Anesthesia, FLOOR SUPERVISOR Recorder Niki Velásquez,RN Scrub Avi, Arcelia,EGG PROCESSING SUPERVISOR TECH2 Procedures Performed Procedure Location (Site) Vessel Name Lead Insertion Venogram Subclav. Vein (Lft Subclavian Vein Equipment Time New Car Salesperson Description Size Mfg Part Number Used/Scraped INTRODUCER SET, [id number] 07:57 [employer] FR 5 Used MICROPUNCTURE *[id number] INTRODUCER SET, [id number] 07:57 [employer] FR 5 Used MICROPUNCTURE *[id number] 07:56 [employer] BLANKET,WARM AIR CCL * Used *[id number] TP-1103 07:56 [employer] SUTURE, STRIP PLUS 1/2" * Used *[id number] 07:56 MEDLINE PACER ADHESIVE, MASTISOL 2/3CC 2/3CC 0523-48 Used 07:56 MEDLINE PACER LEE, LIMB * 2530 *[id number] Used [id number] 07:56 MEDLINE PACER PACK, PACER CUSTOM * Used *[id number] 07:56 MEDLINE PACER PEN, SKIN DUAL W/ RULER * Used *[id number] 08:18 [employer] MEDICAL PACER SAFE SHEATH, FR7, 13CM FR 7 CLS-1007 Used 08:19 [employer] MEDICAL PACER SAFE SHEATH, FR7, 13CM FR 7 CLS-1007 Used 07:45 Needle Sponge Count 2 22 Used 07:45 Needle Sponge Count 25 1 Used 07:45 Needle Sponge Count 5 5 Used 08:09 [employer] OMNIPAQUE, 300 MG, 50ML 50ML [id number] Used [id number] *[id number] SUTURE, 2-0 VICRYL [SH] (FUP978H) SUTURE, 3-0 VICRYL [SH] (EXK261D) SUTURE, 4-0 MONOCRYL [PS2] (Y496G) [facility] PAD, ELECTROSURGICAL 07:56 * [id number] *[id number] Used SURGICAL GROUNDING ORANGE LEAD, CAPSURE FIX NOVUS, 4076-45CM 08:35 [employer] 45CM Used 45CM *[id number] LEAD, CAPSURE FIX NOVUS, 4076-52CM 08:28 [employer] 52CM Used 52CM *[id number] 07:57 [employer] MONITOR, PACEMAKER\\ICD 60588 *[id number] Used 08:46 [employer] PACEMAKER, LIZA XT DR FITZGERALD-DDDR [id number] Used 0469-2844 07:56 [employer] SHALONDA. / * Used *51388 Equipment Model, Serial, Lot Number and Expiration Data Description Model Number Serial Number Lot Number Expiration Date LEAD, CAPSURE FIX NOVUS, 45CM 4076 [id number] 06-16-2019 LEAD, CAPSURE FIX NOVUS, 52CM 4076 [id number] 11-15-2017 PACEMAKER, LIZA XT [id number] 04-17-2019 History: Allergies Allergy Reaction Sulfa (Sulfonamide Antibiotics) Rash penicillin G Rash History: Risk Factors Hypertension Yes Labs Hgb (g/dl) Hct (%) RBC (MIL/MM3) WBC (l/cumm) Platelets (thousands) 11.60-17.00 35.00-51.00 4.00-5.90 4.00-11.00 150.00-450.00 14.0 41 4.1 5.6 166 Glucose (mg/dl) BUN (mg/dl) Creatinine (mg/dl) BUN:Creatinine (1:x) 74.00-106.00 7.00-18.00 0.50-1.30 10.00-20.00 128 10 0.6 16.7 Na (meq/l) K (meq/l) 136.00-145.00 3.50-5.10 140 3.9 INR (PTT:PT) 0.90-1.10 1.1 Medication Medication Total Dose (Bolus/Oral) Medication Total Dosage/Unit 2% XYLOCAINE 50 mL BENADRYL 25 mg PEPCID 20 mg SOLU-CORTEF 100 mg Medications (Bolus/Oral) Medication Time Given Dosage/Unit Administered By Reason 2% XYLOCAINE 12/01/2017 8:06:40 AM 50 mL Anesthesia, FLOOR SUPERVISOR 50 mL 2% XYLOCAINE given in lab by Anesthesia, FLOOR SUPERVISOR via Subcutaneous. Ordered by Nabil Cleary. BENADRYL 12/01/2017 8:07:48 AM 25 mg Anesthesia, FLOOR SUPERVISOR As per physicians verba l order 25 mg BENADRYL given in lab by Anesthesia, FLOOR SUPERVISOR via Peripheral IV. Ordered by Nabil Cleary. Reason: As per physicians verbal order. SOLU-CORTEF 12/01/2017 8:08:07 AM 100 mg Anesthesia, FLOOR SUPERVISOR As per physicians oj bal order 100 mg SOLU-CORTEF given in lab by Anesthesia, FLOOR SUPERVISOR via Peripheral IV. Ordered by Nabil Cleary. Reas on: As per physicians verbal order. PEPCID 12/01/2017 8:08:17 AM 20 mg Anesthesia, FLOOR SUPERVISOR As per physicians verbal order 20 mg PEPCID given in lab by Anesthesia, FLOOR SUPERVISOR. Ordered by Nabil Cleary. Reason: As per physicians ve rbal order. Medication (Drip) Medication Time Given Dosage/Unit Concentration/Unit Diluent (ml) Solution VANCOMYCIN DRIP 12/01/2017 7:30:55 AM 1 g 1 g VANCOMYCIN DRIP given in lab by Anesthesia, FLOOR SUPERVISOR via Peripheral IV. Ordered by Nabil Cleary. Ama son: As per physicians verbal order. Initial Case Assessment Cardiovascular HR Rhythm NIBP Chest Pain 40 2hb 168/65 0 Edema Present Skin color Skin None Normal Warm Dry Circulatory - Right Pulses Dorsalis Pedis Radial 1 1 Scale (0,1,2,3,4,d) Circulatory - Left Pulses Dorsalis Pedis Radial 1 1 Scale (0,1,2,3,4,d) Circulatory - Lower Extremities Color Lower Right Color Lower Left Normal Normal Neurological State Oriented to time-place- Alert Moves all extremities person Respiration - General Respiration Rate SpO2 (%) O2 (lpm) (B/min) 18 95 50 Final Case Assessment Cardiovascular HR Rhythm NIBP Chest Pain 96 homebound teacher 173/98 0 Edema Present Skin color Skin None Normal Warm Dry Circulatory - Right Pulses Radial 1 Scale (0,1,2,3,4,d) Circulatory - Left Pulses Radial 1 Scale (0,1,2,3,4,d) Circulatory - Lower Extremities Color Lower Right Color Lower Left Normal Normal Neurological State Oriented to time-place- Drowsy Moves all extremities person Respiration - General Respiration Rate SpO2 (%) O2 (lpm) (B/min) 16 100 4 Chronological Log Time Study Chronological Log 7:14:51 Patient arrived via Bed. 7:14:52 Patient Name, D.O.B, / Armband Verified By R.N. 7:14:52 Consent signed by the physician and the patient and verified by the Fire Captain Marine staff. 7:14:53 Pre-op and post- op instructions given; patient acknowledges understanding of instructions. 7:14:53 Verbal Stimulation=2 Physical Stimulation=2 Airway=2 Respiration=2 TOTAL=8. (0=absent, 1=li mited, 2=present) 7:14:54 Anesthesia at bedside. Assumes care of patient. 7:14:56 Patient has been NPO for More than 6Hrs. 7:14:56 Skin Breakdown- none per pt 7:14:57 Patient Warmer Placed on the Table. 7:14:58 Disposable Defibrillator Pads Placed On Patient. 7:14:59 Nydia Prominences Protected 7:15:01 A # 20 IV was noted in the Antecubital (left). Grade = 0 0.9ns kvo 7:15:02 A # 20 IV was noted in the Antecubital (right). Grade = 0 0.9ns kvo 7:15:03 History and physical on the chart or being dictated. 1 g VANCOMYCIN DRIP given in lab by Anesthesia, FLOOR SUPERVISOR via Peripheral IV. Ordered by Nabil Cleary . Reason: As per 7:30:55 physicians verbal order. 7:42:46 Reference ECG taken Assessment: Initial Case, HR=40 BPM, Rhythm=2hb, UGRT=277/65 mmhg, Chest Pain=0, Edema=None, Color=Normal, Skin = Warm, Dry Right Pulses: Shalom Ped=1, Radial=1 Left Pulses: Shalom Ped=1, Radial=1 7:42:58 Lower Right Extremities: Color=Normal Lower Left Extremities: Color=Normal Neurological: State=Alert, Ox3, CHAMORRO Respiration: Resp=18 B/min, SpO2=95 %, O2=50 lpm 7:43:55 Table restraints applied according to hospital policy 7:44:00 2% CHLORHEXIDINE GLUCONATE WASH AND NASAL SWIPE DONE PRIOR TO PROCEDURE. First Sponge And Instrument Count Done by Arcelia Cárdenas, EGG PROCESSING SUPERVISOR TECH2. 7:44:23 Hypo's: 5, Sponges: 25, Bovie/scratch: 2 Sutures: 4, Blades: 2, Instruments: 26, Syveck Patches: ~SYVECK PATCH~ 7:48:34 Bovie ground pad applied to: Abd 7:48:56 Upper Chest Prepped Times Two. 8:02:06 MD arrived. Time Out. Correct patient, procedure, procedure equipment, site and side verified with physician present. Time 8:05:03 concurred by MD, individual staff and FLOOR SUPERVISOR. Time Out #2 - Consents verified, patient in correct position, all results are labled and display ed, safety precautions 8:05:31 taken, antibiotics administered. Time out concurred by MD, individual staff and FLOOR SUPERVISOR in procedur e 8:05:54 Case Start 8:06:40 50 mL 2% XYLOCAINE given in lab by Anesthesia, FLOOR SUPERVISOR via Subcutaneous. Ordered by Josh Cleary 25 mg BENADRYL given in lab by Anesthesia, FLOOR SUPERVISOR via Peripheral IV. Ordered by Nabil Cleary. [place] son: As per 8:07:48 physicians verbal order. 100 mg SOLU-CORTEF given in lab by Anesthesia, FLOOR SUPERVISOR via Peripheral IV. Ordered by Nabil Cleary. Reason: As per 8:08:07 physicians verbal order. 8:08:17 20 mg PEPCID given in lab by Anesthesia, FLOOR SUPERVISOR. Ordered by Nabil Cleary. Reason: As per phys icians verbal order. 8:08:47 The Subclav. Vein (Lft was manually injected with 20 cc's of contrast. OMNIPAQUE, 300 MG, 50 ML 50ML used. 8:09:52 Vascular access was obtained in the Subclav. Vein (Lft. 8:17:08 Vascular access was obtained in the Subclav. Vein (Lft. 8:17:11 Wire inserted 8:17:14 Surgical Incision Made. A INTRODUCER SET, MICROPUNCTURE FR 5 was advanced into the Subclav. Vein (Lft using the Modified Seldinger 8:17:33 technique. A SAFE SHEATH, FR7, 13CM FR 7 was exchanged in the Subclav. Vein (Lft. This was necessary in ord er to accomodate 8:17:43 a larger catheter. 8:18:29 Vascular access was obtained in the Subclav. Vein (Lft. 8:18:32 Wire inserted A INTRODUCER SET, MICROPUNCTURE FR 5 was advanced into the Subclav. Vein (Lft using the Modified Seldinger 8:18:35 technique. A SAFE SHEATH, FR7, 13CM FR 7 was exchanged in the Subclav. Vein (Lft. This was necessary in ord er to accomodate 8:18:49 a larger catheter. 8:26:47 A pocket was created at the L Upper Chest. 8:28:59 A LEAD, CAPSURE FIX NOVUS, 52CM 52CM was inserted and positioned in the RV. 8:29:13 Lead placement verified under fluoroscopy 8:30:19 The RV lead impedance and threshold being tested. 8:30:29 The RV lead was sutured to the fascia. 8:32:40 A LEAD, CAPSURE FIX NOVUS, 45CM 45CM was inserted and positioned in the RA. 8:33:42 Lead placement verified under fluoroscopy 8:35:51 The Atrial lead impedance and threshold is being tested. 8:36:16 The Atrial lead was sutured to the fascia. 8:50:16 A PACEMAKER, LIZA XT DR FITZGERALD-DDDR was connected and placed in the pocket. 8:51:23 Pocket flushed with antibiotic solution Second Sponge And Instrument Count Done by Arcelia Cárdenas, EGG PROCESSING SUPERVISOR TECH2. 8:53:57 Hypo's: 5, Sponges: 25, Bovie/scratch: 2 Sutures: 7, Blades: 2, Instruments: , Syveck Patches: ~SYVECK PATCH~ 8:58:18 The pocket was closed. 9:05:29 PACU called. Spoke to Terri 9:05:40 Bedside Report will be given. 9:08:03 Implantable Device card placed in patient's chart. Final Sponge And Instrument Count Done by Arcelia Cárdenas, EGG PROCESSING SUPERVISOR TECH2. 9:08:24 Hypo's: 5, Sponges: 25, Bovie/scratch: 2 Sutures: 7, Blades: 2, Instruments: 26, Syveck Patches: ~SYVECK PATCH~ 9:09:22 Implant Procedure was performed. 9:09:31 A PPM Implant . (Dual) 9:09:50 Steri-strips and a sterile dressing applied to site. 9:11:43 A sling was placed on the affected arm. 9:12:20 Case End (Physician broke scrub) Assessment: Final Case, HR=96 BPM, Rhythm=homebound teacher, QOIA=704/98 mmhg, Chest Pain=0, Edema=None, Mallie r=Normal, Skin = Warm, Dry Right Pulses: Radial=1 Left Pulses: Radial=1 9:12:36 Lower Right Extremities: Color=Normal Lower Left Extremities: Color=Normal Neurological: State=Drowsy, Ox3, CHAMORRO Respiration: Resp=16 B/min, KlG0=954 %, O2=4 lpm 9:13:20 No case complications noted. 9:13:21 Cine recording checked. 9:15:31 Defibrillator and ground pads removed. Skin intact. 9:23:35 Patient moved to stretcher End Study - Contrast Media Used In Study Contrast Total Opened (mL) Total Used (mL) Total Wasted (mL) Omnipaque 50 20 30 End Study - Maximum Contrast Load Max Contrast Load (mL) 487.5 End Study - Radiation Exposure Fluoro Time (minutes) 6.7 End Study - Patient Disposition Complications Transferred To Interventional Outcome No Telemetry Bed successful
--- NOTE | 2017-12-01 09:31 | P.HPGS ---
History of Present Illness Primary Care Physician: Dalton Yeh MD Chief Complaint: Weakness History of Present Illness: 87-year-old female with a history of hypertension, GERD, recurrent GI bleeds, diverticulitis presenting to the ED with progressive weakness. Patient states that 2 weeks ago she had a colonoscopy due to recurrent melena and she states that during the procedure she had "low pulse". She states that since that time she has been progressively more weak, foggy and drowsy. She checks her vitals at home and has noticed fluctuating blood pressure accompanied by heart rates in the 40s and 30s. She states that she saw her primary doctor 2 days prior to presentation and he discontinued her metoprolol. Despite this she continued to be progressively more weak and drowsy and this prompted her to come to the emergency room. He denies any chest pain, shortness of breath, headaches or blurry vision, abdominal pain, melena or bloody bowel movements currently. Of note, patient notes that she has a history of hemochromatosis which " resolved itself several years ago" Denies any family history of heart disease She receives a pacemaker today her pulse is currently in the 80s she was sitting in her room doing well. She had no complaints of pain no cardiac issues at all. We answered her questions. - Diagnosis (1) Bradycardia (2) Weakness (3) Hypertension (4) Recurrent gastrointestinal hemorrhage (5) GERD (gastroesophageal reflux disease) (6) Anxiety (7) Nutrition, metabolism, and development symptoms Review of Systems other (See history and review of systems done yesterday) [facility] [place] - History History Provided By: Patient - Medical History Medical History: Medical History (Last Reviewed 12/01/17 @ 08:15 by Vasiliy Ortiz) Diverticulitis GERD (gastroesophageal reflux disease) HTN (hypertension) - Surgical History Surgical History: Surgical History (Last Reviewed 12/01/17 @ 08:15 by Vasiliy Ortiz) History of ankle surgery History of hip surgery - Tobacco History Second Hand Smoke Exposure: No Tobacco Use In Past 30 Days: No Smoking Status: Never smoker - Alcohol History How Often Do You Have a Drink Containing Alcohol: 2 to 4 times a month - Substance Use History Substance History: No History of Abuse - Travel History Recent Travel in the [place] Within the Last 8 Weeks: No Recent Travel Out of the Country Within the Last 8 Weeks: No - Immunization History Tetanus Immunization: Never Vaccinated Hx Influenza Vaccine This Season: No Medications and Allergies Active Medications: Active Medications Acetaminophen (Tylenol) 650 mg PO Q4H PRN PRN Reason: Temp > 100.4 Al Hydroxide/Mg Hydroxide (Milk Of [place]) 30 ml PO Q12H PRN PRN Reason: Mild Constipation Alprazolam (Xanax) 0.25 mg PO DAILY [facility] Amlodipine Besylate (Norvasc) 5 mg PO DAILY [facility] Last Admin: 12/01/17 08:00 Dose: Not Given Chlorhexidine Gluconate (Chlorhexidine 2% Cloth) 3 pack [employer]FORMATION [employer] PROJECT [employer]GER [facility] Stop: 12/03/17 13:27 Chlorhexidine Gluconate (Chlorhexidine 2% Cloth) 3 pack [employer]FORMATION [employer] PROJECT MANAGER [facility] Stop: 12/04/17 05:36 Enalaprilat (Vasotec Inj) 1.25 mg IV.PUSH Q6H PRN PRN Reason: SEE LABEL COMMENTS Folic Acid (Folic Acid) 1 mg PO DAILY [facility] Last Admin: 12/01/17 08:00 Dose: Not Given Vancomycin HCl 1,000 mg/ (Sodium Chloride) 250 mls @ 250 mls/hr IV.SIG [employer]FORMATION SYSTEMS PROJECT MANAGER [facility] Stop: 12/03/17 14:59 Last Infusion: 12/01/17 09:30 Dose: Infused Lactated Ringer's (Lr 1000 Ml Inj) 1,000 mls @ 30 mls/hr IV.SIG .Q24H [facility] Stop: 12/04/17 05:36 Last Admin: 12/01/17 07:22 Dose: Not Given Sodium Chloride (Ns Inj) 500 mls @ 30 mls/hr IV.SIG .Q10H [facility] Stop: 12/04/17 05:36 Last Admin: 12/01/17 07:15 Dose: 30 mls/hr Losartan Potassium (Cozaar) 100 mg PO DAILY [facility] Last Admin: 12/01/17 08:00 Dose: Not Given Metoprolol Tartrate (Lopressor) 25 mg PO [employer]FORMATION SYSTEMS PROJECT MANAGER [facility] Stop: 12/04/17 05:36 Mupirocin (Bactroban 2% Nasal Oint) 1 applicatio EACH NARE [employer]FORMATION [employer] PROJECT MANAGER [facility] Stop: 12/03/17 13:27 Ondansetron HCl (Zofran Inj) 4 mg IV.PUSH Q6H PRN PRN Reason: NAUSEA OR VOMITING Pantoprazole Sodium (Protonix) 40 mg PO DAILY [facility] Last Admin: 12/01/17 08:00 Dose: Not Given Povidone Iodine (Betadine 5% Antisepsis Kit) 1 applicatio EACH NARE [employer]FORMATION [employer]S PROJECT MANAGER [facility] Stop: 12/03/17 13:27 Povidone Iodine (Betadine 5% Antisepsis Kit) 1 applicatio EACH NARE INFORMATION SYSTEMS PROJECT MANAGER [facility] Stop: 12/04/17 05:36 Senna/Docusate Sodium (Josiane-Colace) 1 tab PO BID [facility] Last Admin: 12/01/17 08:00 Dose: Not Given Sodium Chloride (Ns Flush) 2 ml IV.FLUSH UNSCH PRN PRN Reason: FLUSH AFTER USING IV ACCESS Allergies Allergy/AdvReac Type Severity Reaction Status Date / Time penicillin G Allergy Severe Rash Verified 11/30/17 13:39 Sulfa (Sulfonamide Allergy Severe Rash Verified 11/30/17 13:39 Antibiotics) Home Medications Medication Instructions Recorded Confirmed Type alprazolam 0.25 mg PO DAILY 11/30/17 11/30/17 History amlodipine 5 mg PO DAILY 11/30/17 11/30/17 History folic acid 1 mg PO DAILY 11/30/17 11/30/17 History losartan 100 mg PO DAILY 11/30/17 11/30/17 History metoprolol tartrate 50 mg PO DAILY 11/30/17 11/30/17 History omeprazole 40 mg PO DAILY 11/30/17 11/30/17 History Exam Vital signs: Vital Signs 11/30/17 09:38 11/30/17 10:00 11/30/17 11:00 Temperature Pulse Rate 36 L 38 L Respiratory Rate 19 19 Blood Pressure 164/70 H 178/77 H Pulse Oximetry 97 11/30/17 11:58 11/30/17 12:00 11/30/17 13:30 Temperature Pulse Rate 44 L 37 L Respiratory Rate 19 16 Blood Pressure 169/82 H 151/67 H Pulse Oximetry 96 11/30/17 14:12 11/30/17 16:00 11/30/17 20:00 Temperature 98 F 97.5 F L 98 F Pulse Rate 40 L 42 L 42 L Respiratory Rate 20 20 18 Blood Pressure 170/69 H 143/66 H 159/70 H Pulse Oximetry 96 93 L 94 L 12/01/17 00:00 12/01/17 04:00 Temperature 97.9 F 97.4 F L Pulse Rate 38 L 44 L Respiratory Rate 18 18 Blood Pressure 147/68 H 164/60 H Pulse Oximetry 94 L 95 Intake & Output 11/30/17 12/01/17 12/01/17 18:59 06:59 18:59 Intake Total 240 / 240 250 / 250 Balance 240 / 240 250 / 250 Weight 58.513 kg 58.513 kg Intake: IV 250 / 250 Vancomycin Inj 1,000 MG In NS 250 / 250 Inj 250 ML @ 250 mls/hr IV.SIG [employer]FORMATION [employer] PROJECT MA[employer]GER [facility] Rx#:[id number] Oral 240 / 240 Other: # Voids 2 Date of Last Bowel Movement 12/01/17 # Bowel Movements 1 1 Narrative: GENERAL: Pleasant frail elderly woman in no distress SKIN: Warm and dry. HEAD: Atraumatic. Normocephalic. EYES: Pupils equal and round. No scleral icterus. No injection or drainage. ENT: No nasal bleeding or discharge. Mucous membranes pink and moist. NECK: Trachea midline. No JVD. CARDIOVASCULAR: Regular rate and rhythm. RESPIRATORY: No accessory muscle use. Clear to auscultation. Breath sounds equal bilaterally. GASTROINTESTINAL: Abdomen soft, non-tender, nondistended. MUSCULOSKELETAL: Extremities without clubbing, cyanosis, or edema. No obvious deformities. NEUROLOGICAL: Awake and alert. No obvious cranial nerve deficits. Motor grossly within normal limits. Five out of 5 muscle strength in the arms and legs. Normal speech. PSYCHIATRIC: Appropriate mood and affect; insight and judgment normal. Caprini VTE Risk Assessment Caprini VTE Risk Assessment: Moderate/High Risk (score >= 2) Caprini Risk Assessment Model: Point Value = 1 Point Value = 2 Point Value = 3 Point Value = 5 Age 41-60 Minor surgery BMI > 25 kg/m2 Swollen legs Varicose veins or History of unexplained or recurrent spontaneous Oral contraceptives or hormone replacement Sepsis (< 1 month) Serious lung disease, including pneumonia (< 1 month) Abnormal pulmonary function Acute myocardial infarction Congestive heart failure (< 1 month) History of inflammatory bowel disease Medical patient at bed rest Age 61-74 Arthroscopic surgery Major open surgery (> 45 min) Laparoscopic surgery (> 45 min) Malignancy Confined to bed (> 72 hours) Immobilizing plaster cast Central venous access Age >= 75 History of VTE Family history of VTE Factor V Leiden Prothrombin [id number] Lupus anticoagulant Anticardiolipin antibodies Elevated serum homocysteine Heparin-induced thrombocytopenia Other congenital or acquired thrombophilia Stroke (< 1 month) Elective arthroplasty Hip, pelvis, or leg fracture Acute spinal cord injury (< 1 month) Prophylaxis Regimen: Total Risk Factor Score Risk Level Prophylaxis Regimen 0-1 Low Early ambulation 2 Moderate Order ONE of the following: *Sequential Compression Device (SCD) *Heparin 5000 units SQ BID 3-4 Higher Order ONE of the following medications: *Heparin 5000 units SQ TID *Enoxaparin/Lovenox 40 mg SQ daily (WT < 150 kg, CrCl > 30 mL/min) *Enoxaparin/Lovenox 30 mg SQ daily (WT < 150 kg, CrCl > 10-29 mL/min) *Enoxaparin/Lovenox 30 mg SQ BID (WT < 150 kg, CrCl > 30 mL/min) AND/OR *Sequential Compression Device (SCD) 5 or more Highest Order ONE of the following medications: *Heparin 5000 units SQ TID (Preferred with Epidurals) *Enoxaparin/Lovenox 40 mg SQ daily (WT < 150 kg, CrCl > 30 mL/min) *Enoxaparin/Lovenox 30 mg SQ daily (WT < 150 kg, CrCl > 10-29 mL/min) *Enoxaparin/Lovenox 30 mg SQ BID (WT < 150 kg, CrCl > 30 mL/min) AND *Sequential Compression Device (SCD) Assessment and Plan - Assessment (1) Bradycardia Code(s): R00.1 - Bradycardia, unspecified Status: Acute Plan: (1) Bradycardia Code(s): R00.1 - Bradycardia, unspecified Status: Acute Plan: Reported history of heart rate in the 30s and 40s over the last 2 weeks EKG on admission showed bradycardia with 2-1 AV block Troponin negative on admission Patient been on metoprolol tartrate 50 mg p.o. daily, last taken 2 days prior to presentation Placed on telemetry Consult cardiology Will trend EKGs, troponins Holding home metoprolol Received a pacemaker (2) Weakness Code(s): R53.1 - Weakness Status: Acute Plan: (2) Weakness Code(s): R53.1 - Weakness Status: Acute Plan: 2 week history of progressive weakness Differential diagnoses including symptomatic bradycardia, anemia secondary to GI bleed, electrolyte abnormalities H&H is stable and within normal limits, no electrolyte abnormalities noted Suspect her symptoms be secondary to bradycardia See workup as above (3) Hypertension Code(s): I10 - Essential (primary) hypertension Status: Acute Qualifiers: Hypertension type: essential hypertension Qualified Code(s): I10 - Essential (primary) hypertension Plan: (3) Hypertension Code(s): I10 - Essential (primary) hypertension Status: Acute Plan: Known history of hypertension previously treated with amlodipine, metoprolol and losartan Holding metoprolol, continuing amlodipine and losartan Low pressure 200/88 on admission, continues to be elevated in the 170s over 80s Adding IV Vasotec as needed for systolic blood pressure over 180, diastolic over 100 (4) Recurrent gastrointestinal hemorrhage Code(s): K92.2 - Gastrointestinal hemorrhage, unspecified Status: Acute Plan: (4) Recurrent gastrointestinal hemorrhage Code(s): K92.2 - Gastrointestinal hemorrhage, unspecified Status: Acute Plan: Patient reporting history of recurrent melanoma over the years Reporting a colonoscopy 2 weeks prior to presentation due to this Denying any current symptoms of melena or bloody bowel movements H&H stable Will hold pharmacologic DVT prophylaxis due to this (5) GERD (gastroesophageal reflux disease) Code(s): K21.9 - Gastro-esophageal reflux disease without esophagitis Status: Acute Qualifiers: Esophagitis presence: esophagitis presence not specified Qualified Code(s) : K21.9 - Gastro-esophageal reflux disease without esophagitis Plan: on omeprazole (6) Anxiety Code(s): F41.9 - Anxiety disorder, unspecified Status: Acute Plan: (6) Anxiety Code(s): F41.9 - Anxiety disorder, unspecified Status: Acute Plan: Known history of anxiety Continue home alprazolam (7) Nutrition, metabolism, and development symptoms Code(s): R63.8 - Other symptoms and signs concerning food and fluid intake Status: Acute Plan: (7) Nutrition, metabolism, and development symptoms Code(s): R63.8 - Other symptoms and signs concerning food and fluid intake Status: Acute Plan: Regular diet. N.p.o. at midnight can eat now Normal saline IV fluids at 80 mL/h SCDs for DVT prophylaxis H&P: Quality - VTE Deep Vein Thrombosis/Pulmonary Embolism Present on Admission: No
[2017-12-01] MEDS: ALPRAZolam 0.25 MG Tablet PO SCH (10:04)
--- NOTE | 2017-12-01 10:11 | XR ---
EXAM DATE: 12/01/2017 10:08 AM EDT AGE/SEX: 87 years / Female INDICATIONS: Post pacemaker. Evaluate for pneumothorax. CLINICAL DATA: This is the patient's initial encounter. Patient reports that signs and symptoms have been present for 1 day and indicates a pain score of Nonresponsive. MEDICAL/SURGICAL HISTORY: . Hypertension. . Hip replacement. [place] [facility] [place]. . FINDINGS: The cardiac silhouette is enlarged in transverse diameter. A bipolar pacemaker is in place via a left sided approach. 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 The lungs are free of acute parenchymal opacity. No pulmonary nodules or pleural effusions are identified. CONCLUSION: Cardiomegaly. No acute pulmonary disease. Electronically signed by: Piyush Gabriel MD 12/01/2017 10:10 AM EDT
[2017-12-01] MEDS ORDERED: Lidocaine PF 1% Inj 5 ML Syringe INFILTRATN ONE (11:00)
--- NOTE | 2017-12-01 11:35 | ECG ---
Date Performed: 11/30/2017 Time Performed: 20:27:46 PTAGE: 87 years EKG: Sinus rhythm with third degree AV block Junctional Escape Rhythm POSSIBLE ANTERIOR MYOCARDIAL INFARCTION , PROBAB LY OLD ABNORMAL ECG PREVIOUS TRACING : 11/30/2017 09.25 Compared to previous tracing, third degree AV block has rep laced 2:1 AV block DOCTOR: Nabil Cleary Interpretating Date/Time 12/01/2017 11:34:49
--- NOTE | 2017-12-01 12:25 | MP ---
cc: Nabil Cleary MD DATE OF OPERATION: 12/01/2017 PREOPERATIVE DIAGNOSIS: Symptomatic 2:1 AV block. POSTOPERATIVE DIAGNOSIS: Symptomatic third-degree AV block. PROCEDURE PERFORMED: Insertion of dual-chamber rate-responsive pacemaker. DESCRIPTION OF PROCEDURE: The patient was brought to the cardiac catheterization lab in a fasting state. She received 1 gram of vancomycin for preoperative antibiotics (SHE IS ALLERGIC TO PENICILLIN). I gave her 25 of Benadryl, IV Pepcid, and 100 mg of Solu-Cortef for a CONTRAST ALLERGY. Contrast was injected through an IV in the left arm, showing patency of the subclavian vein. Using 1% lidocaine for local anesthesia, an incision was made parallel to and below the left clavicle. Using sharp and blunt dissections, a pocket was fashioned above the pectoralis muscle. The left subclavian vein was then punctured twice with 2 micropuncture wires. These were exchanged to regular J wires. Over the first J wire, a 7-Djiboutian peel-away sheath was introduced. Through this, the ventricular lead was inserted and screwed near the RV apex, with good sensing and pacing thresholds. It was after this that she was noted to have third-degree AV block, so pacing was continued through the procedure at this point. Over the second guidewire, a 7-[place]iboutian peel-away sheath was introduced and, through this, the atrial lead was inserted and screwed into the right atrial appendage. Appropriate slack was put on both leads and both leads were secured to the underlying fascia using three 2-0 silk sutures with the attached Silastic cuffs. The leads were then attached to the pacemaker generator, which was then positioned in the floor of the pocket. The wound was irrigated with antibiotic solution. The cannula was sutured to the floor of the pocket using a single 2-0 silk suture. The wound was then closed in layers using interrupted 2-0 Vicryl sutures for the deep fascial layers, interrupted 3-0 Vicryl sutures for the subcutaneous layers, followed by running 4-0 Monocryl stitch, and then Steri-Strips and 4 x 4 dressing. Estimated blood loss was 10-20 mL. There were no complications. The pacemaker is a Medtronic model W1DR01, serial number [id number]. The atrial lead is a Medtronic 4076, length 45 cm, serial number [id number]. The P-wave was 2.0 millivolts with threshold of 0.8 volts and impedance of 872 ohms. The ventricular lead is Medtronic 4076, length 52 cm, serial number [id number] with an R-wave of 9 millivolts, threshold of 0.5 volts, and impedance of 1069 ohms. The pacemaker was programmed to DDDR at a rate of 60-130. A chest x-ray has been ordered and anticipate the patient will be discharged home tomorrow. There were no complications. MD FRANSICO Rubio/gerson , 09:13 AM , 09:22 AM
--- NOTE | 2017-12-01 16:33 | ECG ---
Date Performed: 12/01/2017 Time Performed: 09:55:20 PTAGE: 87 years EKG: ELECTRONIC VENTRICULAR PACEMAKER When compared to previous tracing, paced rhythm is new. AB NORMAL RHYTHM ECG PREVIOUS TRACING : 11/30/2017 20.27 DOCTOR: Piyush Joya Interpretating Date/Time 12/01/2017 16:31:44
[2017-12-02 04:38] VITALS: RESP 16
[2017-12-02 07:58] VITALS: BP 154/79; TEMP 97.4
[2017-12-02 08:43] VITALS: O2SAT 95
--- NOTE | 2017-12-02 08:43 | P.PNCA ---
Subjective Interval history: no complaints Physical Exam Vital signs: Vital Signs 12/01/17 09:28 12/01/17 09:30 12/01/17 09:45 Temperature 97.7 F Pulse Rate 89 89 83 Respiratory Rate 19 19 20 Blood Pressure 127/71 138/79 135/75 Pulse Oximetry 97 97 98 12/01/17 10:00 12/01/17 10:15 12/01/17 11:00 Temperature 97.7 F 97.4 F L Pulse Rate 79 79 85 Respiratory Rate 20 17 16 Blood Pressure 143/70 H 142/72 H 138/78 Pulse Oximetry 98 96 98 12/01/17 12:00 12/01/17 12:15 12/01/17 13:00 Temperature Pulse Rate 98 H 54 L 97 H Respiratory Rate Blood Pressure 136/75 Pulse Oximetry 98 12/01/17 14:00 12/01/17 14:19 12/01/17 14:25 Temperature Pulse Rate 95 H 101 H Respiratory Rate 16 Blood Pressure 110/80 Pulse Oximetry 96 92 L 12/01/17 14:44 12/01/17 16:00 12/01/17 17:00 Temperature 98.2 F Pulse Rate 92 H 93 H 102 H Respiratory Rate 16 Blood Pressure 138/77 Pulse Oximetry 94 L 12/01/17 18:00 12/01/17 19:00 12/01/17 20:00 Temperature 98.5 F Pulse Rate 88 92 H 90 Respiratory Rate 19 Blood Pressure 146/81 H Pulse Oximetry 93 L 12/01/17 21:00 12/01/17 22:00 12/01/17 23:00 Temperature Pulse Rate 90 90 85 Respiratory Rate Blood Pressure Pulse Oximetry 12/02/17 00:00 12/02/17 01:00 12/02/17 02:00 Temperature 98.3 F Pulse Rate 82 83 79 Respiratory Rate 17 Blood Pressure 145/81 H Pulse Oximetry 94 L 12/02/17 03:00 12/02/17 04:00 12/02/17 05:00 Temperature 97.9 F Pulse Rate 75 77 72 Respiratory Rate 16 Blood Pressure 155/85 H Pulse Oximetry 95 12/02/17 06:00 12/02/17 07:00 Temperature 97.4 F L Pulse Rate 79 78 Respiratory Rate 16 Blood Pressure 154/79 H Pulse Oximetry 94 L Intake & Output 12/01/17 12/02/17 12/02/17 18:59 06:59 18:59 Intake Total 1970 / 1970 480 / 480 100 / 100 Output Total 1005 / 1005 500 / 500 Balance 965 / 965 -20 / -20 100 / 100 Weight 57.7 kg Intake: IV 1250 / 1250 100 / 100 NS Inj 1,000 ML @ 80 mls/hr IV. 500 / 500 CONT .[id number] [facility] Rx#:[id number] LR 1000 mL Inj 1,000 ML @ 30 100 / 100 mls/hr IV.SIG .Q24H [facility] Rx#: [id number] NS Inj 500 ML @ 30 mls/hr IV. 500 / 500 SIG .Q10H [facility] Rx#:[id number] Vancomycin Inj 1,000 MG In NS 250 / 250 Inj 250 ML @ 250 mls/hr IV.SIG QUALITY ASSURANCE CALIBRATOR [facility] Rx#:[id number] Oral 720 / 720 480 / 480 Output: Urine 1005 / 1005 500 / 500 Other: # Voids 2 Date of Last Bowel Movement 12/01/17 Narrative: Alert Chest Clear Pacer wound OK CV S1S2 RRR Pacer fn nl Assessment and Plan - Assessment (1) Third degree atrioventricular block Code(s): I44.2 - Atrioventricular block, complete Status: Acute (2) Pacemaker Code(s): Z95.0 - Presence of cardiac pacemaker Status: Acute - Plan Pacer OK. OK to DC home. OV 1 week for wound check
[2017-12-02] MEDS: Senna/Docusate Sodium 8.6/50 MG Tablet PO SCH (08:56)
[2017-12-02] MEDS: amLODIPine 5 MG Tablet PO SCH (08:59)
[2017-12-02] MEDS: Folic Acid 1 MG Tablet PO SCH (08:59)
[2017-12-02] MEDS ORDERED: Metoprolol Tartrate 25 MG Tablet PO SCH (09:00)
[2017-12-02] MEDS: ALPRAZolam 0.25 MG Tablet PO SCH (09:32)
[2017-12-02 12:13] VITALS: PULSE 84
--- NOTE | 2017-12-02 14:10 | P.PNFP ---
Subjective Interval history: Patient feeling much better and excited to go home. Denies any dizziness, weakness, SOB, or chest pain. <Shivani Cleary C - 12/02/17 14:09> Results - Labs Result diagrams: 12/01/17 02:50 12/01/17 02:50 <Wei Hairjaneth Ibarra - 12/03/17 11:26> Physical Exam Vital signs: Intake & Output 12/02/17 12/03/17 12/03/17 18:59 06:59 18:59 Intake Total 100 / 100 Balance 100 / 100 Intake: IV 100 / 100 LR 1000 mL Inj 1,000 ML @ 30 100 / 100 mls/hr IV.SIG .Q24H [facility] Rx#: [id number] <ReginaldoRita Ibarra - 12/03/17 11:26> Vital Signs 12/01/17 14:00 12/01/17 14:19 12/01/17 14:25 Temperature Pulse Rate 95 H 101 H Respiratory Rate 16 Blood Pressure 110/80 Pulse Oximetry 96 92 L 12/01/17 14:44 12/01/17 16:00 12/01/17 17:00 Temperature 98.2 F Pulse Rate 92 H 93 H 102 H Respiratory Rate 16 Blood Pressure 138/77 Pulse Oximetry 94 L 12/01/17 18:00 12/01/17 19:00 12/01/17 20:00 Temperature 98.5 F Pulse Rate 88 92 H 90 Respiratory Rate 19 Blood Pressure 146/81 H Pulse Oximetry 93 L 12/01/17 21:00 12/01/17 22:00 12/01/17 23:00 Temperature Pulse Rate 90 90 85 Respiratory Rate Blood Pressure Pulse Oximetry 12/02/17 00:00 12/02/17 01:00 12/02/17 02:00 Temperature 98.3 F Pulse Rate 82 83 79 Respiratory Rate 17 Blood Pressure 145/81 H Pulse Oximetry 94 L 12/02/17 03:00 12/02/17 04:00 12/02/17 05:00 Temperature 97.9 F Pulse Rate 75 77 72 Respiratory Rate 16 Blood Pressure 155/85 H Pulse Oximetry 95 12/02/17 06:00 12/02/17 07:00 12/02/17 08:00 Temperature 97.4 F L Pulse Rate 79 80 76 Respiratory Rate 16 Blood Pressure 154/79 H Pulse Oximetry 94 L 12/02/17 08:42 12/02/17 09:00 12/02/17 10:00 Temperature Pulse Rate 96 H 84 Respiratory Rate Blood Pressure Pulse Oximetry 95 Intake & Output 12/01/17 12/02/17 12/02/17 18:59 06:59 18:59 Intake Total 1970 / 1970 480 / 480 100 / 100 Output Total 1005 / 1005 500 / 500 Balance 965 / 965 -20 / -20 100 / 100 Weight 57.7 kg Intake: IV 1250 / 1250 100 / 100 NS Inj 1,000 ML @ 80 mls/hr IV. 500 / 500 CONT .[id number] [facility] Rx#:[id number] LR 1000 mL Inj 1,000 ML @ 30 100 / 100 mls/hr IV.SIG .Q24H [facility] Rx#: [id number] NS Inj 500 ML @ 30 mls/hr IV. 500 / 500 SIG .Q10H [facility] Rx#:[id number] Vancomycin Inj 1,000 MG In NS 250 / 250 Inj 250 ML @ 250 mls/hr IV.SIG [employer] [facility] Rx#:[id number] Oral 720 / 720 480 / 480 Output: Urine 1005 / 1005 500 / 500 Other: # Voids 2 Date of Last Bowel Movement 12/01/17 <Shivani Cleary - 12/02/17 14:09> Narrative: GENERAL: Pleasant frail elderly woman in no distress SKIN: Warm and dry. erythema of lower back; non raised and non tender HEAD: Atraumatic. Normocephalic. EYES: Pupils equal and round. No scleral icterus. No injection or drainage. ENT: No nasal bleeding or discharge. Mucous membranes pink and moist. NECK: Trachea midline. No JVD. CARDIOVASCULAR: Regular rate and rhythm. RESPIRATORY: No accessory muscle use. Clear to auscultation. Breath sounds equal bilaterally. GASTROINTESTINAL: Abdomen soft, non-tender, nondistended. MUSCULOSKELETAL: Extremities without clubbing, cyanosis, or edema. No obvious deformities. NEUROLOGICAL: Awake and alert. No obvious cranial nerve deficits. Motor grossly within normal limits. Five out of 5 muscle strength in the arms and legs. Normal speech. PSYCHIATRIC: Appropriate mood and affect; insight and judgment normal. <Shivani Cleary - 12/02/17 14:09> Assessment and Plan - Assessment (1) Bradycardia Code(s): R00.1 - Bradycardia, unspecified Status: Acute (2) Hypertension Code(s): I10 - Essential (primary) hypertension Status: Acute (3) Recurrent gastrointestinal hemorrhage Code(s): K92.2 - Gastrointestinal hemorrhage, unspecified Status: Acute (4) GERD (gastroesophageal reflux disease) Code(s): K21.9 - Gastro-esophageal reflux disease without esophagitis Status: Acute (5) Anxiety Code(s): F41.9 - Anxiety disorder, unspecified Status: Acute (6) Nutrition, metabolism, and development symptoms Code(s): R63.8 - Other symptoms and signs concerning food and fluid intake Status: Acute <Rita Hair - 12/03/17 11:26> (1) Bradycardia Code(s): R00.1 - Bradycardia, unspecified Status: Acute Plan: Reported history of heart rate in the 30s and 40s over the last 2 weeks EKG on admission showed bradycardia with 2-1 AV block Troponin negative on admission Patient been on metoprolol tartrate 50 mg p.o. daily, last taken 2 days prior to presentation Placed on telemetry Cardiology consulted and recommended dual chamber pacemaker 12/01 pacemaker inserted 12/02 restarted home metoprolol (2) Hypertension Code(s): I10 - Essential (primary) hypertension Status: Acute Plan: Known history of hypertension previously treated with amlodipine, metoprolol and losartan Holding metoprolol, continuing amlodipine and losartan Low pressure 200/88 on admission Adding IV Vasotec as needed for systolic blood pressure over 180, diastolic over 100 (3) Recurrent gastrointestinal hemorrhage Code(s): K92.2 - Gastrointestinal hemorrhage, unspecified Status: Acute Plan: Patient reporting history of recurrent melanoma over the years Reporting a colonoscopy 2 weeks prior to presentation due to this Denying any current symptoms of melena or bloody bowel movements H&H stable Will hold pharmacologic DVT prophylaxis due to this (4) GERD (gastroesophageal reflux disease) Code(s): K21.9 - Gastro-esophageal reflux disease without esophagitis Status: Acute Plan: Known history of GERD Continue home omeprazole (5) Anxiety Code(s): F41.9 - Anxiety disorder, unspecified Status: Acute Plan: Known history of anxiety Continue home alprazolam (6) Nutrition, metabolism, and development symptoms Code(s): R63.8 - Other symptoms and signs concerning food and fluid intake Status: Acute Plan: Regular diet. SCDs for DVT prophylaxis <Shivani Cleary - 12/02/17 13:52> - Assessment and Plan 87-year-old female with history of hypertension, GERD, recurrent GI bleeds, diverticulitis and anxiety presented to the ED with weakness. Found to be bradycardic with a 2-1 AV block with a heart rate in the 30s-40s. Blood pressure 200/88 on admission. IV Vasotec was administered. During stay blood pressures more controlled in the 140s-150s/80s. Cardiology consulted and inserted dual-chamber pacemaker on 12/[address] Cleary, and patient was restarted on her home metoprolol medication on 12/02. Patient denied any dizziness or weakness or pain after procedure. Patient was sent home with PCP follow up and cardiology follow-up in one week to check on wound. Told to resume all home medications. Seen and discussed with Dr. Hair <Shivani Cleary - 12/02/17 14:09> - Attending Attestation The exam, history, and the medical decision-making described in the above note were completed with the assistance of the resident physician. I reviewed and agree with the findings presented. I attest that I had a [id number] encounter with the patient on the same day, and personally performed and documented my assessment and findings in the medical record. she is feeling energetic and elated after her pacemaker. she jumped up and was walking around the room with no problems <Rita Hair - 12/03/17 11:26> <Shivani Cleary - Last Filed: 12/02/17 13:52> (2) Hypertension Qualifiers: Hypertension type: essential hypertension Qualified Code(s): I10 - Essential (primary) hypertension (4) GERD (gastroesophageal reflux disease) Qualifiers: Esophagitis presence: esophagitis presence not specified Qualified Code(s): K21.9 - Gastro-esophageal reflux disease without esophagitis <Rita Hair - Last Filed: 12/03/17 11:26> (2) Hypertension Qualifiers: Hypertension type: essential hypertension Qualified Code(s): I10 - Essential (primary) hypertension (4) GERD (gastroesophageal reflux disease) Qualifiers: Esophagitis presence: esophagitis presence not specified Qualified Code(s): K21.9 - Gastro-esophageal reflux disease without esophagitis <Shivani Cleary - Last Filed: 12/02/17 13:52> (2) Hypertension Qualifiers: Hypertension type: essential hypertension Qualified Code(s): I10 - Essential (primary) hypertension (4) GERD (gastroesophageal reflux disease) Qualifiers: Esophagitis presence: esophagitis presence not specified Qualified Code(s): K21.9 - Gastro-esophageal reflux disease without esophagitis <Rita Hair - Last Filed: 12/03/17 11:26> (2) Hypertension Qualifiers: Hypertension type: essential hypertension Qualified Code(s): I10 - Essential (primary) hypertension (4) GERD (gastroesophageal reflux disease) Qualifiers: Esophagitis presence: esophagitis presence not specified Qualified Code(s): K21.9 - Gastro-esophageal reflux disease without esophagitis
--- NOTE | 2017-12-02 14:14 | P.DS ---
Date of admission: 11/30/17 10:56 Primary care physician: Dalton Yeh MD Brief History from admission: 87-year-old female with a history of hypertension, GERD, recurrent GI bleeds, diverticulitis presenting to the ED with progressive weakness. Patient states that 2 weeks ago she had a colonoscopy due to recurrent melena and she states that during the procedure she had "low pulse". She states that since that time she has been progressively more weak, foggy and drowsy. She checks her vitals at home and has noticed fluctuating blood pressure accompanied by heart rates in the 40s and 30s. She states that she saw her primary doctor 2 days prior to presentation and he discontinued her metoprolol. Despite this she continued to be progressively more weak and drowsy and this prompted her to come to the emergency room. He denies any chest pain, shortness of breath, headaches or blurry vision, abdominal pain, melena or bloody bowel movements currently. Of note, patient notes that she has a history of hemochromatosis which " resolved itself several years ago" Denies any family history of heart disease She receives a pacemaker today her pulse is currently in the 80s she was sitting in her room doing well. She had no complaints of pain no cardiac issues at all. We answered her questions. DS: Diagnosis - Discharge Diagnosis (1) Bradycardia Status: Acute (2) Hypertension Status: Acute (3) Recurrent gastrointestinal hemorrhage Status: Acute (4) GERD (gastroesophageal reflux disease) Status: Acute (5) Anxiety Status: Acute (6) Nutrition, metabolism, and development symptoms Status: Acute DS: Summary Hospital Course: 87-year-old female with history of hypertension, GERD, recurrent GI bleeds, diverticulitis and anxiety presented to the ED with weakness. Found to be bradycardic with a 2-1 AV block with a heart rate in the 30s-40s. Blood pressure 200/88 on admission. IV Vasotec was administered. During stay blood pressures more controlled in the 140s-150s/80s. Cardiology consulted and inserted dual-chamber rate-responsive pacemaker on 12/[address] Cleary, and patient was restarted on her home metoprolol medication on 12/02. Patient denied any dizziness or weakness or pain after procedure. Patient was sent home with PCP follow up and cardiology follow-up in one week to check on wound. Told to resume all home medications. - Time Spent with Patient Total time spent providing and/or coordinating discharge services: Less than 30 minutes - Quality: VTE Deep Vein Thrombosis/Pulmonary Embolism Present on Admission: No Exam Vital signs: Vital Signs 12/01/17 14:19 12/01/17 14:25 12/01/17 14:44 Temperature Pulse Rate 101 H 92 H Respiratory Rate 16 Blood Pressure 110/80 Pulse Oximetry 96 92 L 12/01/17 16:00 12/01/17 17:00 12/01/17 18:00 Temperature 98.2 F Pulse Rate 93 H 102 H 88 Respiratory Rate 16 Blood Pressure 138/77 Pulse Oximetry 94 L 12/01/17 19:00 12/01/17 20:00 12/01/17 21:00 Temperature 98.5 F Pulse Rate 92 H 90 90 Respiratory Rate 19 Blood Pressure 146/81 H Pulse Oximetry 93 L 12/01/17 22:00 12/01/17 23:00 12/02/17 00:00 Temperature 98.3 F Pulse Rate 90 85 82 Respiratory Rate 17 Blood Pressure 145/81 H Pulse Oximetry 94 L 12/02/17 01:00 12/02/17 02:00 12/02/17 03:00 Temperature Pulse Rate 83 79 75 Respiratory Rate Blood Pressure Pulse Oximetry 12/02/17 04:00 12/02/17 05:00 12/02/17 06:00 Temperature 97.9 F Pulse Rate 77 72 79 Respiratory Rate 16 Blood Pressure 155/85 H Pulse Oximetry 95 12/02/17 07:00 12/02/17 08:00 12/02/17 08:42 Temperature 97.4 F L Pulse Rate 80 76 Respiratory Rate 16 Blood Pressure 154/79 H Pulse Oximetry 94 L 95 12/02/17 09:00 12/02/17 10:00 Temperature Pulse Rate 96 H 84 Respiratory Rate Blood Pressure Pulse Oximetry Intake & Output 12/01/17 12/02/17 12/02/17 18:59 06:59 18:59 Intake Total 1970 / 1970 480 / 480 100 / 100 Output Total 1005 / 1005 500 / 500 Balance 965 / 965 -20 / -20 100 / 100 Weight 57.7 kg Intake: IV 1250 / 1250 100 / 100 NS Inj 1,000 ML @ 80 mls/hr IV. 500 / 500 CONT .[id number] [facility] Rx#:[id number] LR 1000 mL Inj 1,000 ML @ 30 100 / 100 mls/hr IV.SIG .Q24H [facility] Rx#: [id number] NS Inj 500 ML @ 30 mls/hr IV. 500 / 500 SIG .Q10H [facility] Rx#:[id number] Vancomycin Inj 1,000 MG In NS 250 / 250 Inj 250 ML @ 250 mls/hr IV.SIG [employer] [facility] Rx#:[id number] Oral 720 / 720 480 / 480 Output: Urine 1005 / 1005 500 / 500 Other: # Voids 2 Date of Last Bowel Movement 12/01/17 Narrative: GENERAL: Pleasant frail elderly woman in no distress SKIN: Warm and dry. erythema of lower back; non raised and non tender HEAD: Atraumatic. Normocephalic. EYES: Pupils equal and round. No scleral icterus. No injection or drainage. ENT: No nasal bleeding or discharge. Mucous membranes pink and moist. NECK: Trachea midline. No JVD. CARDIOVASCULAR: Regular rate and rhythm. RESPIRATORY: No accessory muscle use. Clear to auscultation. Breath sounds equal bilaterally. GASTROINTESTINAL: Abdomen soft, non-tender, nondistended. MUSCULOSKELETAL: Extremities without clubbing, cyanosis, or edema. No obvious deformities. NEUROLOGICAL: Awake and alert. No obvious cranial nerve deficits. Motor grossly within normal limits. Five out of 5 muscle strength in the arms and legs. Normal speech. PSYCHIATRIC: Appropriate mood and affect; insight and judgment normal. Results Procedures completed during hospitalization: 12/02 Insertion of dual-chamber rate-responsive pacemaker - Impressions ITS Impressions Chest X-Ray 12/01/17 00:00 CONCLUSION: Cardiomegaly. No acute pulmonary disease. Discharge Plan - Discharge Disposition Patient Disposition: Discharge Home - Discharge Condition Condition: Stable - Discharge Order Discharge Orders: Discharge Order (Routine); Ordered 12/02/17 Ordered By: Shivani Cleary Cardiology Clear for Discharge (Routine); Ordered 12/02/17 Ordered By: Nabil Cleary - Physicians Team Primary Care Provider: Dalton Yeh Attending Provider: Rita Hair Other Providers: Nabil Cleary MD
--- NOTE | 2017-12-03 15:53 | ECG ---
Date Performed: 12/02/2017 Time Performed: 07:39:16 PTAGE: 87 years EKG: Dual chamber pacemaker with atrial sensing and ventricular pacing Since previous tracing, n o significant change noted Abnormal ECG PREVIOUS TRACING : 12/01/2017 09.55.20 DOCTOR: Cayetano Chery Interpretating Date/Time 12/03/2017 15:51:57
== END 2017-12-02 11:01 | disposition home or self-care (01) ==
LOC: NEPC 09:15 → NEDA 09:15 → N05 13:53 → HCIS 12-01 10:02
PROVIDERS: ADMIT Family Medicine; ATTEND Family Medicine